=== PATIENT | female | born 1950 | race Caucasian/White ===

== ENCOUNTER 2020-12-19 22:18 | Inpatient (IN) | payer OTHER ==
--- OUTSIDE RECORDS SUMMARY | 2020-12-19 22:22 | XMS REPORT | Continuity of Care Document ---
:1950 Author Organization [facility] t Address [address] [place] [address] [address]. She[address] [place] [address] Care Team Providers Name Role Phone DONTE Attending Clinician Unavailable MICHELLE Attending Clinician Unavailable Problems This patient has no known problems. Allergies, Adverse Reactions, Alerts This patient has no known allergies or adverse reactions. Medications This patient has no known medications. Procedures This patient has no known procedures. Encounters Start End Encounter Admission Attending Care Care Encounter Source Date/Time Date/Time Type Type Clinicians Facility Department ID 2020-04-05 2020-04-05 Outpatient DONTE [facility] [id number] [place] 00:00:00 00:00:00 PAT [address] 2020-03-24 2020-03-24 Outpatient [facility] [id number] 00:00:00 00:00:[address] 2020-03-24 2020-03-24 Outpatient [facility] [id number] 00:00:00 00:00:[address] 2020-03-24 2020-03-24 Outpatient [facility] [id number] [place] 00:00:00 00:00:00 BHAVIK [address] 2020-03-24 2020-03-24 Outpatient [facility] [id number] [place] 00:00:00 00:00:00 BHAVIK [address] Results This patient has no known results.
[2020-12-20 00:16] LABS: Absolute Lymphocytes (CBC) 1.6 K/uL (0.7-4.9); Basophils % 1.1 % (0-1.3); Hematocrit 36.8 % (36.0-45.0); Lymphocytes % 27.6 % (15.3-44.8); MPV 10.1 fL (7.6-11.3); Protime INR 1.09; RBC Red Blood Cell Count 3.97 M/uL (3.86-4.86)
[2020-12-20 00:29] LABS: ALT/SGPT 24 U/L (12-78); AST/SGOT 15 U/L (15-37); Albumin 3.8 g/dL (3.4-5.0); Alkaline Phosphatase 89 U/L (45-117); BUN Blood Urea Nitrogen 21 mg/dL (7-18); Bicarbonate 28 mmol/L (21-32); Bilirubin Direct < 0.1 mg/dL (0-0.2); Bilirubin Total 0.2 mg/dL (0.2-1.0); Glucose Level 118 mg/dL (74-106); Magnesium 2.4 mg/dL (1.8-2.4); NT PRO-BNP 151 pg/mL (<125); Potassium 4.3 mmol/L (3.5-5.1); Protein, Total 7.4 g/dL (6.4-8.2); Sodium Level 143 mmol/L (136-145); Troponin (Emerg Dept Use Only) < 0.02 ng/mL (0.0-0.045)
[2020-12-20 01:01] LABS: Barbiturates NEGATIVE (NEGATIVE); Benzodiazepines NEGATIVE (NEGATIVE); Cocaine NEGATIVE (NEGATIVE); METHAMPHETAM NEGATIVE (NEGATIVE); Methadone NEGATIVE (NEGATIVE); Opiates NEGATIVE (NEGATIVE); Phencyclidine NEGATIVE (NEGATIVE); THC Cannibis NEGATIVE (NEGATIVE)
[2020-12-20 01:05] LABS: Urine Blood TRACE (NEG); Urine Glucose NEGATIVE (NEG); Urine Protein NEGATIVE (NEG)
--- NOTE | 2020-12-20 01:32 | EDPHYS ---
Physician Documentation [facility] Name: Isabel Robins Age: 70 yrs Sex: Female : 1950 Arrival Date: 12/19/2020 Time: 22:24 Bed 16 Private MD: ED Physician Otto Linares HPI: 12/19 23:33 This 70 yrs old Female presents to ER via EMS with complaints of Passed out. mh7 23:33 The patient has experienced syncope, became unresponsive, collapsed, lost mh7 consciousness. Onset: The symptoms/episode began/occurred just prior to arrival, today. 23:34 Duration: This was a single episode, that lasted an unknown period of time. Context: [facility] the episode(s) was witnessed, by family, , occurred at home, occurred while the patient was sitting, Just prior to the episode the patient experienced dizziness. Associated injury: The patient did not suffer any apparent associated injury. Associated signs and symptoms: Pertinent negatives: abdominal pain, agitation, ataxia, blurred vision, chest pain, combativeness, confusion, diaphoresis, diarrhea, headache, lightheadedness, nausea, numbness, palpitations, seizure, shortness of breath, tingling, vomiting, weakness. Current symptoms: Currently, the patient is not experiencing any symptoms, the patient feels back to baseline. Historical: - Allergies: 22:33 No Known Allergies; mg2 - Home Meds: 22:33 gabapentin oral oral [Active]; estradiol [Active]; tinzadiane [Active]; mg2 - PMHx: 22:33 chronic back pain; GERD; mg2 - PSHx: 22:33 back sx; mg2 - Immunization history:: Flu vaccine status is unknown. - Social history:: Smoking status: unknown. ROS: 23:34 Constitutional: Negative for fever, chills, and weight loss, Eyes: Negative for injury, mh7 pain, redness, and discharge, ENT: Negative for injury, pain, and discharge, Neck: Negative for injury, pain, and swelling, Cardiovascular: Negative for chest pain, palpitations, and edema, Respiratory: Negative for shortness of breath, cough, wheezing, and pleuritic chest pain, Abdomen/GI: Negative for abdominal pain, nausea, vomiting, diarrhea, and constipation, Back: Negative for injury and pain, : Negative for injury, bleeding, discharge, and swelling, MS/Extremity: Negative for injury and deformity, Skin: Negative for injury, rash, and discoloration, Psych: Negative for depression, anxiety, suicide ideation, homicidal ideation, and hallucinations, Allergy/Immunology: Negative for hives, rash, and allergies, Endocrine: Negative for neck swelling, polydipsia, polyuria, polyphagia, and marked weight changes, Hematologic/Lymphatic: Negative for swollen nodes, abnormal bleeding, and unusual bruising. Exam: 23:34 Constitutional: This is a well developed, well nourished patient who is awake, alert, mh7 and in no acute distress. Head/Face: Normocephalic, atraumatic. Eyes: Pupils equal round and reactive to light, extra-ocular motions intact. Lids and lashes normal. Conjunctiva and sclera are non-icteric and not injected. Cornea within normal limits. Periorbital areas with no swelling, redness, or edema. Neck: Trachea midline, no thyromegaly or masses palpated, and no cervical lymphadenopathy. Supple, full range of motion without nuchal rigidity, or vertebral point tenderness. No Meningismus. Chest/axilla: Normal chest wall appearance and motion. Nontender with no deformity. No lesions are appreciated. Cardiovascular: Regular rate and rhythm with a normal S1 and S2. No gallops, murmurs, or rubs. Normal PMI, no JVD. No pulse deficits. Respiratory: Lungs have equal breath sounds bilaterally, clear to auscultation and percussion. No rales, rhonchi or wheezes noted. No increased work of breathing, no retractions or nasal flaring. Abdomen/GI: Soft, non-tender, with normal bowel sounds. No distension or tympany. No guarding or rebound. No evidence of tenderness throughout. Back: No spinal tenderness. No costovertebral tenderness. Full range of motion. Skin: Warm, dry with normal turgor. Normal color with no rashes, no lesions, and no evidence of cellulitis. MS/ Extremity: Pulses equal, no cyanosis. Neurovascular intact. Full, normal range of motion. Neuro: Awake and alert, GCS 15, oriented to person, place, time, and situation. Cranial nerves II-XII grossly intact. Motor strength 5/5 in all extremities. Sensory grossly intact. Cerebellar exam normal. Normal gait. Psych: Awake, alert, with orientation to person, place and time. Behavior, mood, and affect are within normal limits. Vital Signs: 22:27 BP 191 / 94; Weight 65.32 kg; Height 5 ft. 4 in. (162.56 cm); mg2 22:38 BP 150 / 88; mg2 22:38 Temp 98.3(O); mg2 23:55 BP 129 / 74; Pulse 79; Resp 18; Pulse Ox 98% on R/A; mg2 12/20 04:14 BP 150 / 91; Pulse 76; Resp 18; Temp 98.1; Pulse Ox 96% on R/A; mg2 12/19 22:27 Body Mass Index 24.72 (65.32 kg, 162.56 cm) mg2 MDM: 01:30 Differential Diagnosis: cardiac arrhythmia, cerebrovascular accident, drug effect, [facility] idiopathic syncope, pseudo seizure, vasovagal episode. Data reviewed: vital signs, nurses notes, EMS record, lab test result(s), cardiac enzymes, CBC, drug level(s), electrolytes, urinalysis, urine drug screen, EKG, radiologic studies, CT scan, plain films. Data interpreted: Pulse oximetry: on room air is 98 %. Interpretation: normal. Counseling: I had a detailed discussion with the patient and/or guardian regarding: the historical points, exam findings, and any diagnostic results supporting the discharge/admit diagnosis, lab results, radiology results, the need for further work-up and treatment in the hospital. Response to treatment: the patient's symptoms have markedly improved after treatment. 01:32 Patient medically screened. [facility] 12/19 23:18 Order name: Basic Metabolic Panel [facility] 12/19 23:18 Order name: CBC with Diff [facility] 12/19 23:18 Order name: LFT's [facility] 12/19 23:18 Order name: Magnesium [facility] 12/19 23:18 Order name: NT PRO-BNP [facility] 12/19 23:18 Order name: PT-INR [facility] 12/19 23:18 Order name: Troponin (emerg Dept Use Only) [facility] 12/19 23:55 Order name: UDS [facility] 12/20 00:16 Order name: CBC with Automated Diff; Complete Time: 00:32 EDMS 12/20 00:17 Order name: Protime (+INR); Complete Time: 00:32 EDMS 12/20 00:29 Order name: Basic Metabolic Panel; Complete Time: 00:32 EDMS 12/20 00:29 Order name: Liver (Hepatic) Function; Complete Time: 00:32 EDMS 12/20 00:29 Order name: Troponin (Emerg Dept Use Only); Complete Time: 00:32 EDMS 12/20 00:29 Order name: NT PRO-BNP; Complete Time: 00:32 EDMS 12/19 23:18 Order name: XRAY Chest (1 view) [facility] 12/19 23:18 Order name: EKG; Complete Time: 00:39 7 12/19 23:19 Order name: CT Head Brain wo Cont [facility] 12/20 00:29 Order name: Magnesium; Complete Time: 00:32 EDMS 12/20 00:52 Order name: Urine Dipstick--Ancillary (enter results) 3 12/20 01:01 Order name: Urine Drug Screen; Complete Time: 01:01 [facility] 12/20 01:05 Order name: Urine Dipstick-Ancillary [facility] 12/20 01:15 Order name: Head Brain Wo Cont EDID 12/20 01:21 Order name: Chest Single View [facility] 12/20 01:29 Order name: COVID-19 : Document "Date of Symptom Onset" if Symptomatic. mg2 12/20 01:29 Order name: CORONAVIRUS [facility] 12/20 01:40 Order name: Troponin I [facility] 12/20 01:40 Order name: Troponin I [facility] 12/20 01:40 Order name: Troponin I [facility] 12/20 01:40 Order name: Heart Healthy [facility] 12/20 03:31 Order name: SARS-COV-2 RT PCR [facility] 12/19 23:18 Order name: Cardiac monitoring; Complete Time: 23:55 7 12/19 23:18 Order name: EKG - Nurse/Tech; Complete Time: 23:55 7 12/19 23:18 Order name: IV Saline Lock; Complete Time: 23:55 7 12/19 23:18 Order name: Labs collected and sent; Complete Time: 23:55 7 12/19 23:18 Order name: O2 Per Protocol; Complete Time: 23:55 7 12/19 23:18 Order name: O2 Sat Monitoring; Complete Time: 23:55 7 12/19 23:18 Order name: Urine Dipstick-Ancillary (obtain specimen); Complete Time: 00:33 [facility] Administered Medications: No medications were administered Disposition: 12/20/20 01:32 Hospitalization ordered by Harlan Barrow for Observation. Preliminary diagnosis is Syncope and collapse. - Bed requested for Telemetry/MedSurg (observation). - Status is Observation. mg2 - Condition is Stable. - Problem is new. - Symptoms have improved. Signatures: Dispatcher [employer] EDID Felisha Morris RN RN cg Jay Judge RN RN mg2 Otto Linares MD MD [facility] Corrections: (The following items were deleted from the chart) 03:46 01:32 Hospitalization Ordered by Harlan Barrow MD for Observation. Preliminary diagnosis cg is Syncope and collapse. Bed requested for Telemetry/MedSurg (observation). Status is Observation. Condition is Stable. Problem is new. Symptoms have improved. [facility] 04:20 03:46 12/20/2020 01:32 Hospitalization Ordered by Harlan Barrow MD for Observation. mg2 Preliminary diagnosis is Syncope and collapse. Bed requested for Telemetry/MedSurg (observation). Status is Observation. Condition is Stable. Problem is new. Symptoms have improved. cg
--- NOTE | 2020-12-20 01:32 | ER ---
Nurse's Notes [facility] Name: Isabel Robins Age: 70 yrs Sex: Female : 1950 Arrival Date: 12/19/2020 Time: 22:24 Bed 16 Private MD: Diagnosis: Syncope and collapse Presentation: 12/19 22:27 Chief complaint: EMS states: she was watching movie tonight with the when she mg2 suddenly loss consciousness but was breathing , did a sternal massage on her and she woke up after 15 mins. BGL was 199 mg/dl. she said she has difficulty scribing some sentences around 0230 pm today but she is alright now. BP was \T\ the high 190 systolic. denies chest pain. I also have a lot of back issues and vertigo has been bothering me nowadays. Coronavirus screen: Client denies travel out of the [place] in the last 14 days. At this time, the client does not indicate any symptoms associated with coronavirus-19. Ebola Screen: No symptoms or risks identified at this time. Initial Sepsis Screen: Does the patient meet any 2 criteria? No. Patient's initial sepsis screen is negative. Does the patient have a suspected source of infection? No. Patient's initial sepsis screen is negative. Risk Assessment: Do you want to hurt yourself or someone else? Patient reports no desire to harm self or others. Onset of symptoms was December 19, 2020. 22:27 Method Of Arrival: EMS: [place] [id number] 22:27 Acuity: JONAS 3 mg2 Triage Assessment: 12/20 00:16 General: Behavior is calm, cooperative. mg2 Historical: - Allergies: 12/19 22:33 No Known Allergies; mg2 - Home Meds: 22:33 gabapentin oral oral [Active]; estradiol [Active]; tinzadiane [Active]; mg2 - PMHx: 22:33 chronic back pain; GERD; mg2 - PSHx: 22:33 back sx; mg2 - Immunization history:: Flu vaccine status is unknown. - Social history:: Smoking status: unknown. Screenin/08 00:16 Abuse screen: Denies threats or abuse. Denies injuries from another. Nutritional mg2 screening: No deficits noted. Tuberculosis screening: No symptoms or risk factors identified. Fall Risk IV access (20 points). Assessment: 12/19 22:40 General: Appears in no apparent distress. comfortable. mg2 12/20 00:15 Pain: Denies pain. Neuro: Level of Consciousness is awake, alert, obeys commands, mg2 Oriented to person, place, time, situation. Cardiovascular: Capillary refill < 3 seconds Patient's skin is warm and dry. Respiratory: Airway is patent Respiratory effort is even, unlabored, Respiratory pattern is regular, symmetrical. GI: No signs and/or symptoms were reported involving the gastrointestinal system. : No signs and/or symptoms were reported regarding the genitourinary system. EENT: No signs and/or symptoms were reported regarding the EENT system. Derm: Skin is intact, is healthy with good turgor, Skin is pink, warm \T\ dry. normal. Musculoskeletal: Circulation, motion, and sensation intact. Capillary refill < 3 seconds. 02:28 Reassessment: Patient appears in no apparent distress at this time. Patient and/or mg2 family updated on plan of care and expected duration. Pain level reassessed. Vital Signs: 12/19 22:27 BP 191 / 94; Weight 65.32 kg; Height 5 ft. 4 in. (162.56 cm); mg2 22:38 BP 150 / 88; mg2 22:38 Temp 98.3(O); mg2 23:55 BP 129 / 74; Pulse 79; Resp 18; Pulse Ox 98% on R/A; mg2 12/20 04:14 BP 150 / 91; Pulse 76; Resp 18; Temp 98.1; Pulse Ox 96% on R/A; mg2 12/19 22:27 Body Mass Index 24.72 (65.32 kg, 162.56 cm) mg2 ED Course: 12/19 22:24 Patient arrived in ED. mg2 22:32 Triage completed. mg2 22:32 Arm band placed on. mg2 22:37 Jay Judge RN is Primary Nurse. mg2 22:40 Otto Linares MD is Attending Physician. mh7 23:45 Inserted saline lock: 20 gauge in left antecubital area, using aseptic technique. Blood mg2 collected. 12/20 00:16 Patient has correct armband on for positive identification. mg2 00:16 No provider procedures requiring assistance completed. mg2 01:15 Head Brain Wo Cont In Process Unspecified. EDMS 01:23 Chest Single View In Process Unspecified. EDMS 01:31 Harlan Barrow MD is Hospitalizing Provider. mh7 04:18 Patient admitted, IV remains in place. mg2 Administered Medications: No medications were administered Outcome: :32 Decision to Hospitalize by Provider. mh7 04:19 Admitted to Med/surg accompanied by nurse, via stretcher, room 218, with chart, Report mg2 called to KATE Dan 04:19 Condition: stable 04:19 Instructed on the need for admit, Demonstrated understanding of instructions. 04:20 Patient left the ED. mg2 Signatures: Dispatcher [employer] EDMS Jay Judge RN RN mg2 Otto Linares MD MD 7 Corrections: (The following items were deleted from the chart) 12/19 22:32 22:27 Chief complaint: EMS states: she was watching movie tonight with the when mg2 she suddenly loss consciousness but was breathing , did a sternal massage on her and she woke up after 15 mins. BGL was 199 mg/dl. she said she has difficulty scribing some sentences around 0230 pm today but she is alright now. BP was \T\ the high 190 systolic. denies chest pain. mg2
[2020-12-20] MEDS ORDERED: ONDANSETRON 4 MG/2 ML VIAL IV PRN (01:35)
[2020-12-20] MEDS ORDERED: NA CHLORIDE 0.9% 1,000 ML IV SCH (02:00)
[2020-12-20] MEDS: cloNIDine HCL 0.1 MG TAB PO PRN (07:05)
[2020-12-20] MEDS: NA CHLORIDE 0.9% 1,000 ML IV SCH ×2 (08:11→22:47)
[2020-12-20 08:15] VITALS: BMI 24.9
--- NOTE | 2020-12-20 08:20 | RAD REPORT ---
EXAM DESCRIPTION: RAD - Chest Single View - 12/20/2020 12:43 am CLINICAL HISTORY: LOSS OF CONSCIOUSNESS COMPARISON: Two view chest January 2017 TECHNIQUE: AP portable chest image was obtained 12/20/2020 12:43 am . FINDINGS: No focal mass or consolidation. Rounded mass density midline low chest is believed to be h iatal hernia that has developed since prior imaging. Chronic interstitial opacification is present si milar to comparison. Heart and vasculature are normal. No measurable pleural effusion and no pneumoth orax. No acute bony abnormality seen. No acute aortic findings suspected. IMPRESSION: Chronic interstitial lung disease with no acute cardiopulmonary finding. Rounded mass density in the midline inferior chest is believed to be hiatal hernia that has developed since prior imaging.
[2020-12-20] MEDS ORDERED: PNEUMOCOCCAL VACCINE 0.5 ML IMVAC ONE (10:00)
--- NOTE | 2020-12-20 12:00 | RAD REPORT ---
EXAM DESCRIPTION: CT - Head Brain Wo Cont - 12/20/2020 5:03 am CLINICAL HISTORY: Syncope COMPARISON: None available TECHNIQUE: Axial CT of the head obtained from the skull apex to the skull base without contrast. Thi s exam was performed according to our departmental dose-optimization program, which includes automate d exposure control, adjustment of the mA and/or kV according to patient size and/or use of iterative reconstruction technique. FINDINGS: No acute intracranial hemorrhage identified. No mass, mass effect, shift of the midline, a bnormal extra-axial fluid collection or CT evidence of acute ischemic change identified. The ventricu lar system and sulcal spaces are mildly enlarged compatible with mild cerebral atrophy. Scattered a reas of hypodensity throughout the supratentorial white matter are nonspecific and may be related to chronic small vessel ischemic change. The visualized paranasal sinuses and mastoid air cells are well aerated. No skull fracture identifi ed. Visualized orbits and globes are unremarkable. Atherosclerotic calcification of the intracranial internal carotid arteries. IMPRESSION: 1. No acute intracranial abnormality by CT criteria. Electronically signed by: Uziel Lovett 12/20/2020 12:29 AM APPLICATION PROCESSOR Due to temporary technical issues with the PACS/Fluency reporting system, reports are being signed by the in house radiologists without review as a courtesy to insure prompt reporting. The interpreting radiologist is fully responsible for the content of the report.
--- NOTE | 2020-12-20 17:57 | RAD REPORT ---
EXAM DESCRIPTION: MRI - Brain W/Wo Cont - 12/20/2020 3:35 pm CLINICAL HISTORY: AMS,SYNCOPE COMPARISON: MRA Head Wo Cont dated 12/20/2020; MRA Neck W/Wo Cont dated 12/20/2020; Head Brain Wo Cont d ated 12/20/2020 TECHNIQUE: Sagittal and axial T1-weighted images were obtained. Axial PD/heavily T2-weighted and T2- FLAIR images were obtained along with axial DWI/ADC mapping sequences. Coronal heavily T2 weighted s equence obtained. Axial and coronal post-contrast T1-weighted images were also obtained. A 14 ml Mul tihance contrast following utilized. FINDINGS: No intracranial hemorrhage is present. No focal mass lesion identifiable. Diffusion imagin g sequence shows bilateral paramedian thalamic nonhemorrhagic infarctions. There is diminished signal on ADC mapping sequence. Lesion is approximately 11 x 6 mm on the left and 13 x 8 mm on the right. I nfarctions are in the medial inferior aspect of the each thalamus extending to the uppermost midbrain . No other areas of acute nonhemorrhagic infarction seen. Patient has atrophy changes are mild. Ventr icles are in proportion to any volume loss. There are mild chronic ischemic changes in the cerebral w lamar matter. The bilateral thalamus infarction pattern is unusual. Thalamoperforator branches from the posterior c ommunicating and posterior cerebral artery supply the thalamus. There is an anatomic variant whereby the bilateral thalamus paramedian regions are supplied by a single vessel (artery of Persheron) off o f one of the posterior cerebral artery P1 segments. Infarction of this vessel would generate the bila teral paramedian thalamus infarction pattern. There is no edema or shift of midline structures. No extra-axial fluid collections. Tillman-matter/white matter junction is preserved. Signal voids are seen as a normal finding in the major intracranial v essels. Post-contrast images show normal enhancement. No dural thickening. Mastoid air cells and paranasal sinuses are clear. 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 Infarctions are in the i nferior thalami extending to the superior midbrain. Mild atrophy and mild chronic ischemic changes are noted in the cerebral white matter. No other areas of acute infarction. No hemorrhage, mass or other acute finding.
[2020-12-20] MEDS ORDERED: METOPROLOL TARTRATE 5 MG/5 ML INJ IV SCH (18:00)
[2020-12-20] MEDS: ENOXAPARIN 40 MG/0.4 ML SQ SCH (18:06)
[2020-12-20] MEDS: ASPIRIN EC 81 MG TAB PO SCH (18:07)
--- NOTE | 2020-12-20 18:09 | RAD REPORT ---
EXAM DESCRIPTION: MRI - MRA Head Wo Cont - 12/20/2020 3:15 pm CLINICAL HISTORY: CVA, decreased level of consciousness COMPARISON: MRI brain same date, CT head same date TECHNIQUE: Axial and coronal 3D [id number] image acquisition was performed. 3D rotational images were generated with source and reconstruction images reviewed. Horizontal and vertical axis rotation al views generated using MIP protocol. FINDINGS: No aneurysm or vascular malformation identifiable. Major venous sinuses appear patent. Ameya ous sinus thrombosis is not suspected from these images. Distal most vertebral arteries and basilar artery show no suspicious findings. Proximal portions of e ach posterior cerebral artery also without significant disease. The internal carotid arteries from sk ullbase determination show no dissection or significant disease. Bilateral anterior and middle cerebr al artery proximal vessels show no significant disease. Patient does have relatively mild atherosclerotic changes in the peripheral branches. No vasculitis o r diffuse vascular process identifiable. IMPRESSION: MRI imaging shows relatively mild atherosclerotic changes in the far peripheral branches of the anterior, middle and posterior cerebral arteries. Central vasculature shows no significant disease. Major venous sinuses appear patent. Occlusion of an anatomic variant is suspected to be the cause of the bilateral paramedian thalamic in farctions. Infarction in this region can result in diminished level of consciousness.
--- NOTE | 2020-12-20 18:15 | RAD REPORT ---
EXAM DESCRIPTION: MRI - MRA Neck W/Wo Cont - 12/20/2020 3:46 pm CLINICAL HISTORY: CVA, diminished level of consciousness. COMPARISON: MRA neck same date, MRI brain same date TECHNIQUE: MR angiography of the cervical vasculature performed. Coronal imaging plane acquisition u tilized. A 14 MultiHance contrast volume was utilized. Coronal reformatted images were generated and reviewed. Vertical axis 3D rotational projections obtained using maximum intensity projection protoco l. FINDINGS: MRA neck imaging has motion degradation limitation. Aortic arch is 3 vessel configuration. Innominate and left common carotid artery show no origins sten osis. There is questionable stenosis in the left subclavian artery between the arch and left vertebra l artery origin. This is estimated at 50%. Proximal portions of each common carotid artery noted to be tortuous. Vertebral artery origins are no t well visualized. The distal right vertebral artery and the distal right internal carotid artery near the skullbase christian w loss of signal. Dissection or high-grade stenosis is not suspected. This is believed to be artifact . MRA Head imaging overlaps the same region of vessels without evidence for stenosis or occlusion. No significant carotid bulb disease. IMPRESSION: Approximately 50% stenosis of the left subclavian artery between the aortic arch and norma tebral artery origin. No significant or true stenosis of the cervical carotid or vertebral vasculature. As detailed above, nonvisualization of the distal right internal carotid artery and vertebral artery believed to be óscar fact. These regions show no significant disease on the overlapping MRA Head imaging.
--- NOTE | 2020-12-20 18:28 | RAD REPORT ---
EXAM DESCRIPTION: RAD - Abdomen Single View - 12/20/2020 6:22 pm CLINICAL HISTORY: confirm Dobhoff placement Pain COMPARISON: ABDOMINAL EXAM COMPLETE dated 06/22/2014 FINDINGS: The top off tube is folded on itself in the distal esophagus. Recommend removal and reposi tioning
--- NOTE | 2020-12-20 20:41 | P.HP ---
Certification for Inpatient Patient admitted to: Inpatient With expected LOS: >2 Midnights Practitioner: I am a practitioner with admitting privileges, knowledge of patient current condition, hospital course, and medical plan of care. Services: Services provided to patient in accordance with Admission requirements found in Title 42 Section 412.3 of the Code of Federal Regulations Patient History Date of Service: 12/20/20 Reason for admission: SYNCOPE History of Present Illness: MRS. ESCOBEDO HAS HISTORY OF SCOLIOSIS WITH MULTIPLE SURGERIES COMES WITH SUDDEN SOMNOLENCE. HER CT SCAN WAS NEGATIVE BUT MRI DONE TODAY SHOW BILATERAL THALAMIC INFARCTIONS. SHE NEVER HAD HTN, SHE IS NOT A SMOKER OR A DIABETIC. Allergies No Known Allergies Allergy (Unverified 07/10/16 01:22) Home medications list reviewed: Yes Home Medications: Ascorbate Calcium [Vitamin C] 500 mg PO 12/20/20 Multivitamin 1 each PO 12/20/20 Mv-Mn/Iron/Folic Acid/Herb 190 [Vitamin D3 Complete Caplet] 1 each PO 12/20/20 - Past Medical/Surgical History Diabetic: No -: GERD -: Vertigo -: Chronic back pain - Social History Smoking Status: Never smoker Alcohol use: Yes CD- Drugs: No Caffeine use: Yes Place of Residence: Home Review of Systems is unable to be obtained Physical Examination - Vital Signs Temperature: 98.3 F Blood Pressure: 168/91 Pulse: 69 Respirations: 16 Pulse Ox (%): 98 - Physical Exam General: Unresponsive (MOVES WITH PAINFUL STIMULUS.) HEENT: Other (PUPILS ARE SMALL AND REACITVE.) Neck: Supple, 2+ carotid pulse no bruit, No LAD, Without JVD or thyroid abnormality Respiratory: Clear to auscultation bilaterally, Normal air movement Cardiovascular: Regular rate/rhythm, Normal S1 S2 Gastrointestinal: Normal bowel sounds, No tenderness Musculoskeletal: No tenderness Integumentary: No rashes Neurological: Other (UNRESPONSIVE. MOVES LEGS WITH PAINFUL STIMULUS.) Lymphatics: No axilla or inguinal lymphadenopathy - Studies Laboratory Data (last 24 hrs) 12/20/20 06:20: Troponin I < 0.02 12/20/20 02:15: Troponin I < 0.02 12/19/20 23:45: PT 12.5, INR 1.09 12/19/20 23:45: WBC 5.80, Hgb 12.2, Hct 36.8, Plt Count 215 12/19/20 23:45: Sodium 143, Potassium 4.3, BUN 21 H, Creatinine 1.00, Glucose 118 H, Magnesium 2.4, Total Bilirubin 0.2, AST 15, ALT 24, Alkaline Phosphatase 89 12/19/20 23:18: PT Cancelled, INR Cancelled 12/19/20 23:18: WBC Cancelled, Hgb Cancelled, Hct Cancelled, Plt Count Cancelled 12/19/20 23:18: Sodium Cancelled, Potassium Cancelled, BUN Cancelled, Creatinine Cancelled, Glucose Cancelled, Magnesium Cancelled, Total Bilirubin Cancelled, AST Cancelled, ALT Cancelled, Alkaline Phosphatase Cancelled Assessment and Plan - Problems (Diagnosis) (1) Thalamic infarct, acute Current Visit: Yes Status: Acute Plan: BILATERAL THALAMIC INFARCTION. POSSIBLE FROM ABNORMAL VARIANT OF BLOOD VESSEL SUPPLYING THIS AREA. DR DANIEL DETAILED HOW INSTEAD OF TWO BLOOD VESSELS SHE HAS ONE AND THAT ONE OCCLUDED GIVING RISE TO STROKE. START DOBHOFF FEEDING. START ASPIRIN 81 MG DAILY FROM DOBHOFF SHE IS NOT ABLE TO SWALLOW BEING UNRESPONSIVE. (2) BP (high blood pressure) Current Visit: Yes Status: Acute Plan: THIS IS A REACTION TO HAVING STROKE. SHE NEVER HAD HTN BEFORE. - Advance Directives Does patient have a Living Will: No Does patient have a Durable POA for Healthcare: No
[2020-12-20] MEDS ORDERED: METOPROLOL TARTRATE 5 MG/5 ML INJ IV PRN (20:43)
[2020-12-20] MEDS ORDERED: JEVITY 1.2 CAL LIQUID 1,000 ML BOT FT SCH (21:00)
[2020-12-20] MEDS: ATORVASTATIN 10 MG TAB PO SCH (21:00)
[2020-12-20] MEDS: carvediloL 6.25 MG TAB PO SCH (21:00)
--- NOTE | 2020-12-20 21:11 | RAD REPORT ---
EXAM DESCRIPTION: RAD - Abdomen Single View - 12/20/2020 8:55 pm CLINICAL HISTORY: confirmation of dobhoff placement Pain COMPARISON: Abdomen Single View dated 12/20/2020 FINDINGS: The enteric tube is coiled within a hiatal hernia and the distal aspect is folded upon its elf likely within the stomach which traverses the hernia defect.
--- NOTE | 2020-12-20 21:32 | CON ---
Reason For Consultation: Consultation called because of sudden unresponsiveness and falling asleep. History Of Present Illness: Ms. Robins is a 70-year-old right-handed patient with no sign ificant past medical history except chronic back pain and gastroesophageal reflux disease, who was at home with her when she suddenly passed out, became unresponsive, and collapsed. He said she appeared to be in a deep sleep and would not arouse. She was brought by emergency services to [facility] and arrived at 2224 hours on the 19 of December. She had a head CT scan done without co ntrast at 5:03 a.m. on the that is the following day, scan showed no acute ischemic or hemorrhagi c change. Blood work showed a normal complete blood count with differential, normal coagulation pane l. Chemistries show mild dehydration with chloride 108, BUN 21, otherwise creatinine was 1. Liver f unction studies unremarkable. Troponins unremarkable. Urine showed trace esterase and trace blood. Toxicology screen was negative. COVID-19 test was negative. The patient's said that she si nce occurrence has been in the sleep state with deep breathing and he said earlier today she did appa rently wake up enough to stand and with assistance because of poor balance, walked to the bathroom an d then went back to bed and appeared to be sleeping and deep breathing. At the time of my evaluation , she was having an EEG done. EEG pattern is just consistent with sleep. There were spindle activit y noted. Her subsequent brain MRI done today identified bilateral acute thalamic strokes, which is s uspected potentially came off an anatomical variant whereby both thalami are supplied by a single ves zachery off 1 of the posterior cerebral artery P1 segments. This is referred to us artery of [place]. Another possibility is cardioembolic strokes given the nature of these, although unlikely those typi doris end up in the cortex and not in the subcortical region. The MRI also identified mild atrophy a nd chronic ischemic change. The neck MRA showed no significant abnormalities in the vessels into the head. There was a 50% stenosis of left subclavian between the aortic arch and the vertebral artery. It should be noted that along with the thalami, the upper brainstem were also involved in strokes. The MRA of the [place] of March showed mild arthrosclerotic changes in the far peripheral branches o f the anterior middle and posterior cerebral artery, and they again reference an anatomical variant, it is suspected to be the cause of the bilateral paramedian thalamic infarcts, which again can result in diminished level of consciousness. Past Medical History: As indicated. Allergies: NO KNOWN DRUG ALLERGIES. Medications: At home, gabapentin, estradiol, tizanidine. Past Surgical History: Back surgery. Social History: No alcohol, tobacco, or IV drug use. The patient lives with . Physical Examination: Vital Signs: Blood pressure 168/91, pulse 69, respirations 16, temperature 98.3, oxygen saturation 9 8%. Weight 145 pounds, height 5 feet 4 inches, BMI 24.9. General: Ms. Robins is lying in bed and appearing to be in sleep. She is arousable by stimulating the feet. She does focally withdraw each foot and similarly so the hands to focally move and withdra w to stimulation. HEENT: Her pupils when eyes are open are about 2 mm and round and very poorly reactive bilaterally, is very sluggish. Consensual response noted. Face appears symmetric. Lungs: Air movement bilaterally. Heart: Regular. Abdomen: Soft. Extremities: No edema or cyanosis. Neurological: No focal cranial nerve deficits except pupils are around 2 mm when eyes were close. F marlee again is symmetric. Motor examination difficult to assess, but there is increased tone in the up per and lower extremities with dry symmetric sensation difficult to assess, but the patient does with draw to stimulation in the feet, less so to stimulation in the upper extremity, that is the hand. Sh e did not move when the nail pressure was applied bilaterally on the hands, although very little move ment there. With lifting the arm up, she did resist movement of both sides. Unable to assess coordi nation and gait. Reflexes are symmetric and slightly increased. Assessment: Ms. Robins is a 70-year-old patient, who has a possible stroke affecting the paramedian thalami and upper brainstem. This is possibly due to an anatomical variant where 1 vessel off 1 of the posterior cerebral artery P1 segment serve both thalamic region and the upper brain stem, that ma y produce such a syndrome as the patient is having. Plan: 1.Aspirin 81 mg daily. 2.The patient will be served by placing an NG tube, may then have a swallow evaluation if awake enou gh. May give central nervous system stimulant to attempt to keep the patient awake during waking ludmila r times. 3.Begin physical therapy as best as possible. 4.Maintain some permissive hypertension during this acute stroke phase. 5.We will evaluate for the possibility of beginning rehabilitation and this was discussed with Dr. iSgifredo thomas and the patient's daughter and . LUDY/JESSICA Voice ID: [id number] Report ID: [id number]
[2020-12-21] MEDS: ASPIRIN EC 81 MG TAB PO SCH (09:00)
[2020-12-21] MEDS ORDERED: ASPIRIN 600 MG/SUPP PR SCH (09:00)
[2020-12-21] MEDS: ENOXAPARIN 40 MG/0.4 ML SQ SCH ×2 (09:00→13:15)
[2020-12-21] MEDS: carvediloL 6.25 MG TAB PO SCH ×3 (09:00→21:00)
--- NOTE | 2020-12-21 18:09 | PN ---
Subjective: Ms. Robins was unconscious this morning, basically unresponsive actually with a painful stimulus but I heard while we were trying to prepare for Dobhoff placement by an EGD as it was not possible by nursing with multiple trials. During this time, she woke up after I visited this morning and she is going to speech evaluation and speech therapy to find out ability to swallow. We will be referring her for occupational and physical therapy, possible inpatient rehab also. Assessment/plan: 1. 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 Continue aspirin once a day. We had to give suppository and now she is back on oral food and medications. 2. Hypertension, which was never problem but after stroke some patients become hypertensive. She is one of them. We will be following this on a routine basis and this should improve with just a gentle dose at this point. CRISPIN/JESSICA Voice ID: [id number] Report ID: [id number] GILBERTO
[2020-12-21] MEDS: NA CHLORIDE 0.9% 1,000 ML IV SCH (18:59)
[2020-12-21] MEDS ORDERED: ACETAMINOPHEN 500 MG TAB PO SCH (21:00)
[2020-12-21] MEDS: ATORVASTATIN 10 MG TAB PO SCH (21:00)
--- NOTE | 2020-12-22 08:49 | ECHO ---
HEIGHT: 5 ft 4 in WEIGHT: 145 lb 0 oz DATE OF STUDY: 12/21/[address]: Harlan Barrow MD 2-DIMENSIONAL: YES M.MODE: YES DOPPLER: YES COLOR FLOW: YES TDS: NO PORTABLE: NO DEFINITY: NO BUBBLE STUDY: NO DIAGNOSIS: SYNCOPE CARDIAC HISTORY: CATHERIZATION: NO SURGERY: NO PROSTHETIC VALVE: NO PACEMAKER: NO MEASUREMENTS (cm) DIASTOLIC (NORMALS) SYSTOLIC (NORMALS) IVSd 1.2 (0.6-1.2) LA Diam 2.6 (1.9-4.0) LVEF 54% LVIDd 2.8 (3.5-5.7) LVIDs 2.1 (2.0-3.5) %FS 27% LVPWd 1.2 (0.6-1.2) Ao Diam 2.3 (2.0-3.7) 2 DIMENSIONAL ASSESSMENT: RIGHT ATRIUM: NORMAL LEFT ATRIUM: NORMAL RIGHT VENTRICLE: NORMAL LEFT VENTRICLE: NORMAL TRICUSPID VALVE: NORMAL MITRAL VALVE: NORMAL PULMONIC VALVE: NORMAL AORTIC VALVE: NORMAL PERICARDIAL EFFUSION: NONE AORTIC ROOT: NORMAL LEFT VENTRICULAR WALL MOTION: NORMAL DOPPLER/COLOR FLOW: MILD TRICUSPID REGURGITATION. COMMENTS: MILD TRICUSPID REGURGITATION. NORMAL LEFT VENTRICULAR SIZE AND FUNCTION. NO WALL MOTION ABNORMALITY. NO EFFUSION. TECHNOLOGIST: Jorge LOPEZ
[2020-12-22] MEDS: ASPIRIN 600 MG/SUPP PR SCH (09:00)
[2020-12-22] MEDS ORDERED: carvediloL 6.25 MG TAB PO SCH (09:00)
--- NOTE | 2020-12-22 10:15 | EEG ---
CHART: [id number] TEST ID#: [id number] DATE OF STUDY: 12/20/2020 THE EEG WAS RECORDED PORTABLE IN THE PATIENT'S ROOM ON A 17 CHANNEL MACHINE. ELECTRODES WERE APPLIED IN THE USUAL MANNER USING THE INTERNATIONAL 10-20 SYSTEM. THE WAKING BACKGROUND RHYTHM IN THIS RECORD CONSISTS OF POORLY DEVELOPED AND POORLY ORGANIZED WAVES OF 9 HZ., MAXIMAL IN THE POSTERIOR HEAD REGIONS WHICH ATTENUATE NORMALLY WITH EYE OPENING. LOW-VOLTAGE 15-18 HZ ACTIVITY IS EXPRESSED IN THE FRONTAL REGIONS. THERE ARE NO FOCAL OR LATERALIZING FEATURES. NO EPILEPTIFORM ACTIVITY APPEARS. SLEEP OCCURRED NATURALLY. IN ADDITION NORMAL SLEEP PATTERNS ARE PRESENT. HYPERVENTILATION WAS NOT PERFORMED. PHOTIC STIMULATION PRODUCED FAIR DRIVING BILATERALLY. IMPRESSION: THIS IS A MILDLY ABNORMAL EEG DUE TO A MILDLY SLOW BACKGROUND. THIS IS A NON-SPECIFIC FUNCTION INDICATING THE PRESENCE OF A MILD DIFFUSE DISTURBANCE IN CEREBRAL FUNCTION.
[2020-12-22] MEDS: GABAPENTIN 100 MG CAP PO SCH (11:11)
[2020-12-22] MEDS: ENOXAPARIN 40 MG/0.4 ML SQ SCH (11:11)
[2020-12-22] MEDS: ASPIRIN EC 81 MG TAB PO SCH (11:12)
[2020-12-22] MEDS: carvediloL 6.25 MG TAB PO SCH ×2 (11:12→21:06)
[2020-12-22] MEDS: ATORVASTATIN 10 MG TAB PO SCH (21:06)
--- NOTE | 2020-12-22 21:45 | P.PN ---
Subjective Date of Service: 12/22/20 Chief Complaint: THALAMIC INFARCTS Subjective: No C/O voiced SHE WOKE UP YESTERDAY FROM 11 AM TO 4 PM AND SINCE THEN SHE IS SLEEPING AGAIN. POSTPONED AGGIE TUBE SHE WOKE UP AND HAD SPEECH THERAPY EVAL. Review of Systems is unable to be obtained Physical Examination - Vital Signs Temperature: 98.0 F Blood Pressure: 159/70 Pulse: 104 Respirations: 16 Pulse Ox (%): 97 - Physical Exam General: Mild distress HEENT: Atraumatic, PERRLA, EOMI Neck: Supple, JVD not distended Respiratory: Clear to auscultation bilaterally, Normal air movement Cardiovascular: Regular rate/rhythm, Normal S1 S2 Gastrointestinal: Normal bowel sounds, No tenderness Musculoskeletal: No tenderness Integumentary: No rashes Neurological: Other (PUPILS RE REACTING BUT SHE IS UNRESPONSIVE AND DOES NOT MOVE MUCH WITH PAINFUL STIMULUS.) Lymphatics: No axilla or inguinal lymphadenopathy - Studies Medications List Reviewed: Yes Assessment And Plan - Current Problems (Diagnosis) (1) Thalamic infarct, acute Current Visit: Yes Status: Acute Plan: BILATERAL THALAMIC INFARCTION. POSSIBLE FROM ABNORMAL VARIANT OF BLOOD VESSEL SUPPLYING THIS AREA. DR DANIEL DETAILED HOW INSTEAD OF TWO BLOOD VESSELS SHE HAS ONE AND THAT ONE OCCLUDED GIVING RISE TO STROKE. START DOBHOFF FEEDING. START ASPIRIN 81 MG DAILY FROM DOBHOFF SHE IS NOT ABLE TO SWALLOW BEING UNRESPONSIVE. SLEEP WAKE CYCLE , KIRSTIE ARE NOT FUNCTIONIGN WELL. HE MAY LET US DO DOBHOFF TUBE IF SHE DOES NOT WAKE UP. (2) BP (high blood pressure) Current Visit: Yes Status: Acute Plan: THIS IS A REACTION TO HAVING STROKE. SHE NEVER HAD HTN BEFORE.
[2020-12-23] MEDS: NA CHLORIDE 0.9% 1,000 ML IV SCH ×2 (02:45→20:10)
[2020-12-23] MEDS ORDERED: NA CHLORIDE 0.9% 1,000 ML IV SCH (06:32)
[2020-12-23] MEDS: ASPIRIN EC 81 MG TAB PO SCH (08:27)
[2020-12-23] MEDS: ENOXAPARIN 40 MG/0.4 ML SQ SCH (08:27)
[2020-12-23] MEDS: cloNIDine HCL 0.1 MG TAB PO PRN (08:28)
[2020-12-23] MEDS: carvediloL 6.25 MG TAB PO SCH ×2 (08:28→21:00)
[2020-12-23] MEDS: GABAPENTIN 100 MG CAP PO SCH (08:29)
[2020-12-23] MEDS: ASPIRIN 600 MG/SUPP PR SCH (08:30)
[2020-12-23] MEDS ORDERED: CLONIDINE 0.2 MG/PATCH TD SCH (09:00)
[2020-12-23 09:22] LABS: Absolute Lymphocytes (CBC) 0.6 K/uL (0.7-4.9); Basophils % 0.3 % (0-1.3); Hematocrit 37.3 % (36.0-45.0); Lymphocytes % 6.7 % (15.3-44.8); MPV 9.4 fL (7.6-11.3); RBC Red Blood Cell Count 4.05 M/uL (3.86-4.86)
[2020-12-23 10:40] LABS: Potassium 4.2 mmol/L (3.5-5.1)
--- NOTE | 2020-12-23 12:57 | P.PN ---
Subjective Date of Service: 12/23/20 Chief Complaint: THALAMIC INFARCTS Subjective: Improving SHE WOKE UP YESTERDAY FROM 11 AM TO 4 PM AND SINCE THEN SHE IS SLEEPING AGAIN. POSTPONED AGGIE TUBE SHE WOKE UP AND HAD SPEECH THERAPY EVAL. SHE IS AWAKE TODAY. SHE DOES NOT KNOW ABOUT YEAR UNTIL PROMPTED. SHE IS ABLE TO EAT. Review of Systems 10-point ROS is otherwise unremarkable General: Weakness Physical Examination - Vital Signs Temperature: 97.9 F Blood Pressure: 146/67 Pulse: 108 Respirations: 20 Pulse Ox (%): 98 - Physical Exam General: Oriented x2, Mild distress HEENT: Atraumatic, PERRLA, EOMI Neck: Supple, JVD not distended Respiratory: Clear to auscultation bilaterally, Normal air movement Cardiovascular: Regular rate/rhythm, Normal S1 S2 Gastrointestinal: Normal bowel sounds, No tenderness Musculoskeletal: No tenderness Integumentary: No rashes Neurological: Normal speech, Sensation intact, Cranial nerves 3-12 intact, Abnormal strength (MILD GENERAL WEAKNESS) Lymphatics: No axilla or inguinal lymphadenopathy - Studies Medications List Reviewed: Yes Assessment And Plan - Current Problems (Diagnosis) (1) Thalamic infarct, acute Current Visit: Yes Status: Acute Plan: BILATERAL THALAMIC INFARCTION. POSSIBLE FROM ABNORMAL VARIANT OF BLOOD VESSEL SUPPLYING THIS AREA. DR DANIEL DETAILED HOW INSTEAD OF TWO BLOOD VESSELS SHE HAS ONE AND THAT ONE OCCLUDED GIVING RISE TO STROKE. START DOBHOFF FEEDING. START ASPIRIN 81 MG DAILY FROM DOBHOFF SHE IS NOT ABLE TO SWALLOW BEING UNRESPONSIVE. SLEEP WAKE CYCLE , KIRSTIE ARE NOT FUNCTIONIGN WELL. HE MAY LET US DO DOBHOFF TUBE IF SHE DOES NOT WAKE UP. SHE DID NOT NEED DOBHOFF AFTERALL. WE GAVE HER ASPIRIN PER RECTAL. DAUGHTER WHO IS DOCTOR HAS A LOT OF QUESTIONS. I CALLED HER AND SHE IS ON AIRPLANE FOR VISIT HERE. IDEALLY WITH ANOMALY THAT SHOWS THE REASON OF INFARCT WE DON'T LOOK FOR HYPERCOAGULATION OR BUBBLE STUDY. SHE WANTS IT SO WE WILL HAVE IT DONE. (2) BP (high blood pressure) Current Visit: Yes Status: Acute Plan: THIS IS A REACTION TO HAVING STROKE. SHE NEVER HAD HTN BEFORE.
[2020-12-23] MEDS: ATORVASTATIN 10 MG TAB PO SCH (21:00)
[2020-12-24 05:49] LABS: Absolute Lymphocytes (CBC) 0.8 K/uL (0.7-4.9); Basophils % 0.4 % (0-1.3); Hematocrit 33.7 % (36.0-45.0); Lymphocytes % 8.4 % (15.3-44.8); MPV 9.8 fL (7.6-11.3)
[2020-12-24 05:57] LABS: BUN Blood Urea Nitrogen 15 mg/dL (7-18); Bicarbonate 26 mmol/L (21-32); Glucose Level 155 mg/dL (74-106); HDL Cholesterol 42 mg/dL (40-60); LDL Cholesterol, Calculated 57 (<130); Potassium 3.7 mmol/L (3.5-5.1); Sodium Level 141 mmol/L (136-145)
[2020-12-24 06:41] LABS: C-Reactive Protein 69.6 mg/L (<3.00)
[2020-12-24] MEDS: carvediloL 6.25 MG TAB PO SCH ×2 (08:11→21:00)
[2020-12-24] MEDS: ACETAMINOPHEN 325 MG TABLET PO PRN (08:11)
[2020-12-24] MEDS: GABAPENTIN 100 MG CAP PO SCH (08:11)
[2020-12-24] MEDS: ASPIRIN EC 81 MG TAB PO SCH (08:12)
[2020-12-24] MEDS: ENOXAPARIN 40 MG/0.4 ML SQ SCH (08:12)
--- NOTE | 2020-12-24 08:41 | ECHO ---
HEIGHT: 5 ft 4 in WEIGHT: 145 lb 0 oz DATE OF STUDY: 12/23/[address]: Jerome Art MD 2-DIMENSIONAL: YES M.MODE: YES DOPPLER: NO COLOR FLOW: NO TDS: YES PORTABLE: NO DEFINITY: NO BUBBLE STUDY: NO DIAGNOSIS: CHEST PAIN, SALINE CONTRAST STUDY CARDIAC HISTORY: CATHERIZATION: NO SURGERY: NO PROSTHETIC VALVE: NO PACEMAKER: NO MEASUREMENTS (cm) DIASTOLIC (NORMALS) SYSTOLIC (NORMALS) IVSd (0.6-1.2) LA Diam (1.9-4.0) LVEF 65-69% LVIDd (3.5-5.7) LVIDs (2.0-3.5) %FS % LVPWd (0.6-1.2) Ao Diam (2.0-3.7) 2 DIMENSIONAL ASSESSMENT: RIGHT ATRIUM: LEFT ATRIUM: RIGHT VENTRICLE: LEFT VENTRICLE: TRICUSPID VALVE: MITRAL VALVE: PULMONIC VALVE: AORTIC VALVE: PERICARDIAL EFFUSION: AORTIC ROOT: LEFT VENTRICULAR WALL MOTION: DOPPLER/COLOR FLOW: COMMENTS: TECNICALLY DIFFICULT STUDY. NORMAL LEFT VENTRICULAR SIZE AND FUNCTION. LEFT VENTRICULAR EJECTION FRACTION 65-69%. NO EFFUSION. NO EVIDENCE OF ATRIAL SEPTAL DEFECT OR PATENT FORAMEN OVALE BY BUBBLE STUDY. TECHNOLOGIST: Jorge LOPEZ
[2020-12-24] MEDS ORDERED: modafiniL 100 MG TAB PO SCH (09:00)
[2020-12-24] MEDS: ASPIRIN 600 MG/SUPP PR SCH (09:00)
--- NOTE | 2020-12-24 14:41 | RAD REPORT ---
EXAM DESCRIPTION: USExtrem Venous W Compress Bil12/24/2020 2:32 pm CLINICAL HISTORY: Leg swelling COMPARISON: 2016 FINDINGS: The common femoral, superficial femoral, popliteal and posterior tibial veins bilaterally are compressible and demonstrate augmentation. Doppler demonstrates good flow. IMPRESSION: No evidence of deep venous thrombosis involving either lower extremity.
--- NOTE | 2020-12-24 15:03 | RAD REPORT ---
EXAM DESCRIPTION: USCarotid Artery Bilateral12/24/2020 2:25 pm CLINICAL HISTORY: cva FINDINGS: The velocity of the right internal carotid artery equals 105 cm/sec. The right ICA/CCA rat io 0.7 The velocity of the left internal carotid artery equals 92 cm/sec. The left ICA/CCA ratio 0.6 Plaque is not visualized carotid arteries The vertebral arteries demonstrate antegrade flow IMPRESSION: Unremarkable exam NASCET criteria used. Mild 0-49% stenosis Moderate 50-69% stenosis Severe 70-99% stenosis
[2020-12-24] MEDS: NA CHLORIDE 0.9% 1,000 ML IV SCH (16:10)
--- NOTE | 2020-12-24 16:35 | P.PN ---
Subjective Date of Service: 12/24/20 Chief Complaint: THALAMIC INFARCTS Subjective: Improving SHE WOKE UP YESTERDAY FROM 11 AM TO 4 PM AND SINCE THEN SHE IS SLEEPING AGAIN. POSTPONED AGGIE TUBE SHE WOKE UP AND HAD SPEECH THERAPY EVAL. SHE IS AWAKE TODAY. SHE DOES NOT KNOW ABOUT YEAR UNTIL PROMPTED. SHE IS ABLE TO EAT. THIS MORNING SHE IS AWAKE FOR TWO HOURS ATE COOKIES AND BREAKFAST. SHE HAS NO PAIN. Review of Systems 10-point ROS is otherwise unremarkable General: Weakness Physical Examination - Vital Signs Temperature: 97.5 F Blood Pressure: 97/54 Pulse: 67 Respirations: 16 Pulse Ox (%): 97 - Physical Exam General: Mild distress, Other (AWAKE TODAY, BUT 20 HOURS A DAY SHE SLEEPS.) HEENT: Atraumatic, PERRLA, EOMI Neck: Supple, JVD not distended Respiratory: Clear to auscultation bilaterally, Normal air movement Cardiovascular: Regular rate/rhythm, Normal S1 S2 Gastrointestinal: Normal bowel sounds, No tenderness Musculoskeletal: No tenderness Integumentary: No rashes Neurological: Normal speech, Other (MEMORY IS COMING BACK. SHE IS ABLE TO TELL WHAT MONTH IS TODAY. ) Lymphatics: No axilla or inguinal lymphadenopathy - Studies Medications List Reviewed: Yes Assessment And Plan - Current Problems (Diagnosis) (1) Thalamic infarct, acute Current Visit: Yes Status: Acute Plan: BILATERAL THALAMIC INFARCTION. I HAD A LONG MEETING WITH HER AND THE DAUGHTER WHO IS AN CONTROL DIRECTOR TODAY. SHE HAD MANY QUESTIONS ABOUT WORK UP. I EXPLAINED THAT NEUROLOGIST AND MYSELF SUSPECT THAT THIS STROKE IS AN INFARCT AND NOT AN EMBOLISM. AT THE SAME TIME HYPERCOAGULATION WORK UP IS RECOMMENDED IN YOUNGER STROKE PATIENTS ABOUT 50 OR YOUNGER. THIS IS WHY WE DID NOT DO WORK UP UNTIL SHE ASKED FOR IT. SAME FOR PFO WORK UP WE THINK THIS IS AN INFARCT AND NOT EMBOLISM. SHE ASKED FOR MORE WORK UP AND THAT IS NEGATIVE SO FAR. BUBBLE STUDY, VENOUS DOPPLER ARE NEGATIVE. HYPERCOAGULATION STUDIES ARE PENDING. SHE WANTS MOTHER IN [facility] AND NOT AT THIS HOSPITAL. NOW THEY ARE READY FOR DOBHOFF TUBE INSERTION THAT WAS SCHEDULED A FEW DAYS AGO BUT THEY WANTED TO WAIT. I CALLED DR. ROSA AND HE AGREES TO DO IT ON SUNDAY. PROGNOSIS IS GUARDED. (2) BP (high blood pressure) Current Visit: Yes Status: Acute Plan: THIS IS A REACTION TO HAVING STROKE. SHE NEVER HAD HTN BEFORE. ] BP IS LOWER NOW. I WILL STOP CATAPRES PATCH.
--- NOTE | 2020-12-24 20:48 | PN ---
Subjective: Ms. Robins is sitting in bed, trying to eat dinner, very, very sleepy. Her is feeding the food to her. Her daughter is at the bedside. She does not report a complaint or any dis tress. Objective: Vital Signs: Blood pressure ranged 97 to 102/50 to mid 50s; pulse ranged in the 60s, karthik und 67; temperature 97.5; oxygen saturation 97% on room air, respiratory rate 15 to 18. Weight 145 p ounds, height 5 feet 4 inches. Neurologic: Ms. Robins is a very sleepy, but can be aroused by verbal and tactile stimulation. Her head is bent forward. Eyes mostly closed and for a moment when stimulated, she is awake enough to b ite and chew just a little bit of food at the time. When stimulated further, she moves both feet equ ally well and the arms equally well. Her said that earlier today she did not get up, but pre viously day before, she was able to get to the bathroom when more awake. However, most of the time, she is asleep and when the physical therapist in their note came to work with her, she was asleep and very difficult to arouse, and they were unable to work with her in terms of out of the bed. Laboratory Studies: Complete blood count with differential shows slightly low hemoglobin 11.5, tracie l white blood cell count. Coagulation, no new findings there, nothing abnormal. Chemistries show gl ucose ranged 139 to 155; chloride slightly elevated at 108, otherwise normal; calcium 8.2. Total cho lesterol is 114, LDL cholesterol 57, HDL cholesterol 42. Homocystine level pending. Vitamin B12 shirley vated to 1352. C-reactive protein very elevated to 69.6. Troponin less than 0.0. She has stroke an d the workup pending. Her carotid artery ultrasound showed an unremarkable study. There are no sign ificant abnormalities identified. Extremity Doppler study showed no clot in either legs. Echocardio gram showed left ventricular size and function, showed no abnormalities, 65% to 99% ejection fraction , no effusion, no evidence of atrial septal defect or patent foramen ovale by bubble study, and no ot her abnormalities identified. Assessment: Ms. 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 She does not have any evidence of a cardioembolic episode or thromboembolic episode, but possibly ischemic episode from the vessel itse lf related to her stroke risk factors, which include hypertension and dyslipidemia, which is now well controlled. This was all discussed with the patient's family. I did start modafinil earlier today, but not quite clear if the patient is more awake. I increased that to 100 mg around 8 a.m. and anot her 100 mg around 2 p.m. to see if that may be helpful. She is also on gabapentin. May consider if not required to minimize the need of anything that could be sedating to help the patient to be more a wake. She will likely benefit from a very aggressive program of physical therapy. It is not clear i f she may get approval from insurance, however, I think all attempts should be made whether it be a t ier or in our local rehab unit for aggressive physical therapy. This was discussed with the family a nd they were told to work with her throughout the day to move arms, legs, and stimulate her to keep h er awake to try to activate the area to return towards normal functioning. However, it is very tough for that to occur and this was discussed with the patient's family, and they are understanding. The patient again will have an attempt made for either transfer to [facility] or to our rehab unit or some ot er facility where aggressive rehab could be redone. CHACE Voice ID: [id number] Report ID: [id number]
[2020-12-24 20:59] LABS: RPR (Rapid Plasma Reagin) NON-REACT (NON-REACT)
[2020-12-24] MEDS: ATORVASTATIN 10 MG TAB PO SCH (21:00)
[2020-12-25] MEDS: NA CHLORIDE 0.9% 1,000 ML IV SCH (02:34)
[2020-12-25 07:41] LABS: Hematocrit 33.7 % (36.0-45.0); RBC Red Blood Cell Count 3.61 M/uL (3.86-4.86)
[2020-12-25 07:42] LABS: Absolute Lymphocytes (CBC) 0.9 K/uL (0.7-4.9); Basophils % 0.5 % (0-1.3); Lymphocytes % 12.7 % (15.3-44.8); MPV 9.3 fL (7.6-11.3)
[2020-12-25 07:54] LABS: BUN Blood Urea Nitrogen 13 mg/dL (7-18); Bicarbonate 27 mmol/L (21-32); Glucose Level 104 mg/dL (74-106); Potassium 3.7 mmol/L (3.5-5.1); Sodium Level 142 mmol/L (136-145)
--- NOTE | 2020-12-25 07:58 | PN ---
Date of Progress Note: 12/21/2020 Subjective: Ms. Robins was seen on 12/20/2020 because of syncope. She had an extensive cardiovascu lar and workup pending. She had MRI of brain that showed bilateral paramedian thalamic ac [place] nonhemorrhagic infarction. Thalami extending to the superior midbrain. She had an EEG that show ed mild abnormality consistent with mild slowing background with diffuse disturbance in the cerebral function. Echocardiogram was done, showed mild tricuspid regurgitation, normal left ventricular size and function, . Dr. Barrow and Dr. Jain following the patient. Certainly, a 2D echoca rdiogram with bubble study may be reasonable to rule out any PFO or ASD, I doubt very much that this is an embolic event. I will discuss the case further with Dr. Barrow. I will be available for questi ons if the need arises. JOSEE/JESSICA Voice ID: [id number] Report ID: [id number]
[2020-12-25] MEDS: ASPIRIN 600 MG/SUPP PR SCH (09:00)
[2020-12-25] MEDS: carvediloL 6.25 MG TAB PO SCH ×2 (09:47→21:30)
[2020-12-25] MEDS: ASPIRIN EC 81 MG TAB PO SCH (09:47)
[2020-12-25] MEDS: ENOXAPARIN 40 MG/0.4 ML SQ SCH (09:48)
[2020-12-25] MEDS: modafiniL 100 MG TAB PO SCH ×2 (09:48→13:02)
[2020-12-25] MEDS: GABAPENTIN 100 MG CAP PO SCH (09:48)
[2020-12-25] MEDS: FAMOTIDINE 20 MG/2 ML VIAL IV SCH (09:50)
--- NOTE | 2020-12-25 10:10 | CON ---
Date of Consultation: 12/20/2020 Reason For Consultation: Syncope. History Of Present Illness: Ms. Robins is a rather healthy woman without any past cardiac history. She has a history of gastroesophageal reflux disease and chronic back pain for which she takes gabap entin, estradiol, and tizanidine. She came in with syncope, unknown. Of time, the syncope was witne ssed by her and occurred at home while patient was sitting. A prior to the episode the patie nt has complained of some dizziness, but did not have any chest pain. She had denied any nausea, vom iting, diaphoresis, PND, orthopnea, pedal edema, or palpitation. There were no evidence of seizure d isorder reported by the patient and/or the family. She was admitted for further evaluation and treat ment. By the time I saw her, she already had a chest x-ray showing chronic interstitial disease with a possibility of a hiatal hernia. She had a brain MRI and MRA which were still pending when I saw h er. She will also going to have an EEG. They were still pending by the time I saw her. Neurologica l consultation was still pending. An abdominal x-ray confirming a Dobhoff placement was pending as osorio crabtree. Past Medical History: As stated above. Allergies: NONE. Review of Systems: Negative. Social History: Negative. Family History: Noncontributory. Medications: At home were listed earlier. Physical Examination: General: When I initially saw Ms. Robins her vital signs was stable, but she would not wake up for questions. She was not easily arousable. Vital Signs: Her blood pressure was 150/88. She was in sinus rhythm. Her temperature was 98.3. HEENT: Negative. Neck: Supple without any bruit, lymphadenopathy, JVD, or thyromegaly. Chest: Clear to auscultation and percussion. Cardiac: Revealed a regular rhythm and rate without any significant murmurs, gallops, or rubs. Abdomen: Benign. Extremities: Revealed no clubbing, cyanosis, or edema. Diagnostic Data: Most of her diagnostic data was stated earlier. From a laboratory evaluations reyes dpoint her labs were fairly unremarkable. Impression And Plan: Syncope, etiology unknown so far. Extensive workup is pending. I am concerned that she may have had a CVA. I doubt we are dealing with any cardiac issues at this point. She has a brain MRI with MRA pending. She has a head CT pending. She has a neck MRA pending. She has an E EG pending. An echocardiogram is pending. Neurological consultation is pending. We will see what a ll these showed before making any further decisions. Carotid Doppler has been ordered as well. I wi ll discuss the case further with Dr. Barrow. I agree with his present regimen. JOSEE/JESSICA Voice ID: [id number] Report ID: [id number]
--- NOTE | 2020-12-25 16:25 | P.PN ---
Subjective Date of Service: 12/25/20 Chief Complaint: THALAMIC INFARCTS Subjective: Improving SHE WOKE UP YESTERDAY FROM 11 AM TO 4 PM AND SINCE THEN SHE IS SLEEPING AGAIN. POSTPONED AGGIE TUBE SHE WOKE UP AND HAD SPEECH THERAPY EVAL. SHE IS AWAKE TODAY. SHE DOES NOT KNOW ABOUT YEAR UNTIL PROMPTED. SHE IS ABLE TO EAT. THIS MORNING SHE IS AWAKE FOR TWO HOURS ATE COOKIES AND BREAKFAST. SHE HAS NO PAIN. SHE HAS EXCESS SLEEPINESS FROM THE STROKE BUT SHE IS ABLE TO WAKE UP AND EAT WITH PROMPTING. SHE IS ORIENTED TO PEOPLE AND PLACE. Review of Systems is unable to be obtained Physical Examination - Vital Signs Temperature: 98.1 F Blood Pressure: 128/61 Pulse: 101 Respirations: 18 Pulse Ox (%): 97 - Physical Exam General: Oriented x2, Unresponsive (AT TIMES BUT DOES WAKE UP.) HEENT: Atraumatic, PERRLA, EOMI Neck: Supple, JVD not distended Respiratory: Clear to auscultation bilaterally, Normal air movement Cardiovascular: Regular rate/rhythm, Normal S1 S2 Gastrointestinal: Normal bowel sounds, No tenderness Musculoskeletal: No tenderness Integumentary: No rashes Neurological: Abnormal strength (GEN WEAK.) Lymphatics: No axilla or inguinal lymphadenopathy - Studies Medications List Reviewed: Yes Assessment And Plan - Current Problems (Diagnosis) (1) Thalamic infarct, acute Current Visit: Yes Status: Acute Plan: BILATERAL THALAMIC INFARCTION. I HAD A LONG MEETING WITH HER AND THE DAUGHTER WHO IS AN CHIEF ARSON DIVISION TODAY. SHE HAD MANY QUESTIONS ABOUT WORK UP. I EXPLAINED THAT NEUROLOGIST AND MYSELF SUSPECT THAT THIS STROKE IS AN INFARCT AND NOT AN EMBOLISM. AT THE SAME TIME HYPERCOAGULATION WORK UP IS RECOMMENDED IN YOUNGER STROKE PATIENTS ABOUT 50 OR YOUNGER. THIS IS WHY WE DID NOT DO WORK UP UNTIL SHE ASKED FOR IT. SAME FOR PFO WORK UP WE THINK THIS IS AN INFARCT AND NOT EMBOLISM. SHE ASKED FOR MORE WORK UP AND THAT IS NEGATIVE SO FAR. BUBBLE STUDY, VENOUS DOPPLER ARE NEGATIVE. HYPERCOAGULATION STUDIES ARE PENDING. SHE WANTS MOTHER IN [facility] AND NOT AT THIS HOSPITAL. NOW THEY ARE READY FOR DOBHOFF TUBE INSERTION THAT WAS SCHEDULED A FEW DAYS AGO BUT THEY WANTED TO WAIT. I CALLED DR. ROSA AND HE AGREES TO DO IT ON SUNDAY. PROGNOSIS IS GUARDED. DAUGHTER WHO IS DOCTOR WANTED MORE WORKUP THAT IS DONE. I BELIEVE AND DR. DANIEL ALSO BELIEVES THAT SHE HAS AN INFARCT IN A VERY SMALL BLOOD VESSEL AND NOT EMBOLISM. IF SHE HAD EMBLOLISM IT WILL ALSO GO TO MANY OTHER AREAS OF BRAIN BEFORE IT LODGES IN SMALL ANOMALOUS BLOOD VESSEL SUPPLYING THALAMUS. (2) BP (high blood pressure) Current Visit: Yes Status: Acute Plan: THIS IS A REACTION TO HAVING STROKE. SHE NEVER HAD HTN BEFORE. ] BP IS LOWER NOW. I WILL STOP CATAPRES PATCH.
[2020-12-25] MEDS: ATORVASTATIN 10 MG TAB PO SCH ×2 (21:00→21:30)
[2020-12-26 06:15] LABS: Absolute Lymphocytes (CBC) 1.3 K/uL (0.7-4.9); Basophils % 0.9 % (0-1.3); Hematocrit 31.8 % (36.0-45.0); Lymphocytes % 18.8 % (15.3-44.8); MPV 9.8 fL (7.6-11.3); RBC Red Blood Cell Count 3.42 M/uL (3.86-4.86)
[2020-12-26 06:48] LABS: Potassium 3.5 mmol/L (3.5-5.1)
[2020-12-26] MEDS: NA CHLORIDE 0.9% 1,000 ML IV SCH ×2 (08:10→22:59)
[2020-12-26] MEDS: modafiniL 100 MG TAB PO SCH ×2 (08:36→14:31)
[2020-12-26] MEDS: GABAPENTIN 100 MG CAP PO SCH (08:36)
[2020-12-26] MEDS: ENOXAPARIN 40 MG/0.4 ML SQ SCH (08:36)
[2020-12-26] MEDS: ASPIRIN EC 81 MG TAB PO SCH (08:36)
[2020-12-26] MEDS: carvediloL 6.25 MG TAB PO SCH ×2 (08:36→19:29)
[2020-12-26] MEDS: ASPIRIN 600 MG/SUPP PR SCH (09:00)
[2020-12-26] MEDS: FAMOTIDINE 20 MG/2 ML VIAL IV SCH (11:02)
--- NOTE | 2020-12-26 11:18 | P.PN ---
Subjective Date of Service: 12/26/20 Chief Complaint: THALAMIC INFARCTS Subjective: Improving SHE WOKE UP YESTERDAY FROM 11 AM TO 4 PM AND SINCE THEN SHE IS SLEEPING AGAIN. POSTPONED AGGIE TUBE SHE WOKE UP AND HAD SPEECH THERAPY EVAL. SHE IS AWAKE TODAY. SHE DOES NOT KNOW ABOUT YEAR UNTIL PROMPTED. SHE IS ABLE TO EAT. THIS MORNING SHE IS AWAKE FOR TWO HOURS ATE COOKIES AND BREAKFAST. SHE HAS NO PAIN. SHE HAS EXCESS SLEEPINESS FROM THE STROKE BUT SHE IS ABLE TO WAKE UP AND EAT WITH PROMPTING. SHE IS ORIENTED TO PEOPLE AND PLACE. AWAKE TODAY. ABLE TO EAT BF. Review of Systems 10-point ROS is otherwise unremarkable General: Weakness Neurological: As per HPI Physical Examination - Vital Signs Temperature: 97.4 F Blood Pressure: 138/74 Pulse: 88 Respirations: 17 Pulse Ox (%): 96 - Physical Exam General: Oriented x3, Other HEENT: Atraumatic, PERRLA, EOMI Neck: Supple, JVD not distended Respiratory: Clear to auscultation bilaterally, Normal air movement Cardiovascular: Regular rate/rhythm, Normal S1 S2 Gastrointestinal: Normal bowel sounds, No tenderness Musculoskeletal: No tenderness Integumentary: No rashes Neurological: Other (ORIENTATION IS STILL POOR TO TIME AND PLACE. SHE DOES RECOGNIZE PEOPLE.), Abnormal speech, Abnormal strength (GEN WEAK. ABLE TO MOVE ALL FOUR LIMBS. ) Lymphatics: No axilla or inguinal lymphadenopathy - Studies Medications List Reviewed: Yes Assessment And Plan - Current Problems (Diagnosis) (1) Thalamic infarct, acute Current Visit: Yes Status: Acute Plan: BILATERAL THALAMIC INFARCTION. I HAD A LONG MEETING WITH HER AND THE DAUGHTER WHO IS AN ORDER ENTRY TECHNICIAN TODAY. SHE HAD MANY QUESTIONS ABOUT WORK UP. I EXPLAINED THAT NEUROLOGIST AND MYSELF SUSPECT THAT THIS STROKE IS AN INFARCT AND NOT AN EMBOLISM. AT THE SAME TIME HYPERCOAGULATION WORK UP IS RECOMMENDED IN YOUNGER STROKE PATIENTS ABOUT 50 OR YOUNGER. THIS IS WHY WE DID NOT DO WORK UP UNTIL SHE ASKED FOR IT. SAME FOR PFO WORK UP WE THINK THIS IS AN INFARCT AND NOT EMBOLISM. SHE ASKED FOR MORE WORK UP AND THAT IS NEGATIVE SO FAR. BUBBLE STUDY, VENOUS DOPPLER ARE NEGATIVE. HYPERCOAGULATION STUDIES ARE PENDING. SHE WANTS MOTHER IN [facility] AND NOT AT THIS HOSPITAL. NOW THEY ARE READY FOR DOBHOFF TUBE INSERTION THAT WAS SCHEDULED A FEW DAYS AGO BUT THEY WANTED TO WAIT. I CALLED DR. ROSA AND HE AGREES TO DO IT ON SUNDAY. PROGNOSIS IS GUARDED. DAUGHTER WHO IS DOCTOR WANTED MORE WORKUP THAT IS DONE. I BELIEVE AND DR. DANIEL ALSO BELIEVES THAT SHE HAS AN INFARCT IN A VERY SMALL BLOOD VESSEL AND NOT EMBOLISM. IF SHE HAD EMBLOLISM IT WILL ALSO GO TO MANY OTHER AREAS OF BRAIN BEFORE IT LODGES IN SMALL ANOMALOUS BLOOD VESSEL SUPPLYING THALAMUS. SHE IS MUCH MORE AWAKE. TALKED TO DAUGHTER AT BEDSIDE TODAY. MODAFINIL HAS HELPED. SHE ATE BF TODAY AND DID PT WHEN SHE IS AWAKE. DOBHOFF HAS BEEN CANCELED AGAIN SHE IS ABLE TO WAKE UP AND EAT. (2) BP (high blood pressure) Current Visit: Yes Status: Acute Plan: THIS IS A REACTION TO HAVING STROKE. SHE NEVER HAD HTN BEFORE. ] BP IS LOWER NOW. I WILL STOP CATAPRES PATCH.
[2020-12-26] MEDS: ATORVASTATIN 10 MG TAB PO SCH (19:29)
[2020-12-27] MEDS: NA CHLORIDE 0.9% 1,000 ML IV SCH ×2 (04:10→23:41)
[2020-12-27 05:50] LABS: Absolute Lymphocytes (CBC) 1.3 K/uL (0.7-4.9); Basophils % 0.9 % (0-1.3); Hematocrit 35.2 % (36.0-45.0); Lymphocytes % 14.9 % (15.3-44.8); MPV 9.7 fL (7.6-11.3); RBC Red Blood Cell Count 3.83 M/uL (3.86-4.86)
[2020-12-27 06:04] LABS: BUN Blood Urea Nitrogen 9 mg/dL (7-18); Bicarbonate 28 mmol/L (21-32); Glucose Level 117 mg/dL (74-106); Potassium 3.6 mmol/L (3.5-5.1); Sodium Level 141 mmol/L (136-145)
[2020-12-27] MEDS: ASPIRIN 600 MG/SUPP PR SCH (09:00)
[2020-12-27] MEDS: ASPIRIN EC 81 MG TAB PO SCH (09:57)
[2020-12-27] MEDS: GABAPENTIN 100 MG CAP PO SCH (09:57)
[2020-12-27] MEDS: carvediloL 6.25 MG TAB PO SCH ×2 (09:58→20:08)
[2020-12-27] MEDS: ENOXAPARIN 40 MG/0.4 ML SQ SCH (09:59)
[2020-12-27] MEDS: modafiniL 100 MG TAB PO SCH ×2 (10:05→16:02)
[2020-12-27 10:44] LABS: Protein C Antigen 97 % (70-140)
[2020-12-27] MEDS: FAMOTIDINE 20 MG/2 ML VIAL IV SCH (16:03)
[2020-12-27] MEDS: ATORVASTATIN 10 MG TAB PO SCH (20:09)
--- NOTE | 2020-12-27 20:39 | P.PN ---
Subjective Date of Service: 12/27/20 Chief Complaint: THALAMIC INFARCTS Subjective: Improving SOMONOLENT TODAY. COULD NOT WAKE UP MUCH MORE THAN SLUGGISH REPONSE TO STIMULUS. Review of Systems is unable to be obtained Physical Examination - Vital Signs Temperature: 98.5 F Blood Pressure: 134/61 Pulse: 93 Respirations: 17 Pulse Ox (%): 95 - Physical Exam General: Mild distress HEENT: Atraumatic, PERRLA, EOMI Neck: Supple, JVD not distended Respiratory: Clear to auscultation bilaterally, Normal air movement Cardiovascular: Regular rate/rhythm, Normal S1 S2 Gastrointestinal: Normal bowel sounds, No tenderness Musculoskeletal: No tenderness Integumentary: No rashes Neurological: Other (SOMNOLENT, SPONTANEOUS MOVEMENTS ARE VISIBLE.) Lymphatics: No axilla or inguinal lymphadenopathy - Studies Medications List Reviewed: Yes Assessment And Plan - Current Problems (Diagnosis) (1) Thalamic infarct, acute Current Visit: Yes Status: Acute Plan: BILATERAL THALAMIC INFARCTION. I HAD A LONG MEETING WITH HER AND THE DAUGHTER WHO IS AN ADMINISTRATIVE SUPERVISOR TODAY. SHE HAD MANY QUESTIONS ABOUT WORK UP. I EXPLAINED THAT NEUROLOGIST AND MYSELF SUSPECT THAT THIS STROKE IS AN INFARCT AND NOT AN EMBOLISM. AT THE SAME TIME HYPERCOAGULATION WORK UP IS RECOMMENDED IN YOUNGER STROKE PATIENTS ABOUT 50 OR YOUNGER. THIS IS WHY WE DID NOT DO WORK UP UNTIL SHE ASKED FOR IT. SAME FOR PFO WORK UP WE THINK THIS IS AN INFARCT AND NOT EMBOLISM. SHE ASKED FOR MORE WORK UP AND THAT IS NEGATIVE SO FAR. BUBBLE STUDY, VENOUS DOPPLER ARE NEGATIVE. HYPERCOAGULATION STUDIES ARE PENDING. SHE WANTS MOTHER IN [facility] AND NOT AT THIS HOSPITAL. NOW THEY ARE READY FOR DOBHOFF TUBE INSERTION THAT WAS SCHEDULED A FEW DAYS AGO BUT THEY WANTED TO WAIT. I CALLED DR. ROSA AND HE AGREES TO DO IT ON SUNDAY. PROGNOSIS IS GUARDED. DAUGHTER WHO IS DOCTOR WANTED MORE WORKUP THAT IS DONE. I BELIEVE AND DR. DANIEL ALSO BELIEVES THAT SHE HAS AN INFARCT IN A VERY SMALL BLOOD VESSEL AND NOT EMBOLISM. IF SHE HAD EMBLOLISM IT WILL ALSO GO TO MANY OTHER AREAS OF BRAIN BEFORE IT LODGES IN SMALL ANOMALOUS BLOOD VESSEL SUPPLYING THALAMUS. SHE IS MUCH MORE AWAKE. TALKED TO DAUGHTER AT BEDSIDE TODAY. MODAFINIL HAS HELPED. SHE ATE BF TODAY AND DID PT WHEN SHE IS AWAKE. DOBHOFF HAS BEEN CANCELED AGAIN SHE IS ABLE TO WAKE UP AND EAT. WE SENT ORDER TO [facility] ON SUNDAY BUT THEY OPENED THE CASE TODAY. HYPERCOAGULATION ALMEIDA NEG SO FAR, PROTEIN C, S, PROTHROMBIN GENE, ANTICARDIOLIPIN ANTIBODY ALL GOOD. I SUSPEC THESE WILL BE ALL OKAY. (2) BP (high blood pressure) Current Visit: Yes Status: Acute Plan: THIS IS A REACTION TO HAVING STROKE. SHE NEVER HAD HTN BEFORE. ] BP IS LOWER NOW. I WILL STOP CATAPRES PATCH.
[2020-12-27 22:22] LABS: Albumin, (SPE) 3.4 g/dL (3.8-4.8); Alpha-1-Globulins 0.3 g/dL (0.2-0.3); Alpha-2-Globulins 0.7 g/dL (0.5-0.9); Gamma Globulins 0.8 g/dL (0.8-1.7); INTERPRETATION REPORT
[2020-12-28 06:18] LABS: Absolute Lymphocytes (CBC) 1.4 K/uL (0.7-4.9); Basophils % 0.8 % (0-1.3); Hematocrit 32.8 % (36.0-45.0); Lymphocytes % 17.1 % (15.3-44.8); MPV 9.7 fL (7.6-11.3); RBC Red Blood Cell Count 3.56 M/uL (3.86-4.86)
[2020-12-28 06:32] LABS: Potassium 3.8 mmol/L (3.5-5.1)
[2020-12-28] MEDS: GABAPENTIN 100 MG CAP PO SCH (08:01)
[2020-12-28] MEDS: ASPIRIN EC 81 MG TAB PO SCH (08:02)
[2020-12-28] MEDS: carvediloL 6.25 MG TAB PO SCH ×2 (08:02→19:43)
[2020-12-28] MEDS: FAMOTIDINE 20 MG/2 ML VIAL IV SCH (08:02)
[2020-12-28] MEDS: modafiniL 100 MG TAB PO SCH ×2 (08:02→16:27)
[2020-12-28] MEDS: ENOXAPARIN 40 MG/0.4 ML SQ SCH (08:03)
[2020-12-28] MEDS: ASPIRIN 600 MG/SUPP PR SCH (08:03)
[2020-12-28] MEDS: ATORVASTATIN 10 MG TAB PO SCH (19:42)
[2020-12-28] MEDS: ENSURE ENLIVE 237 ML CAN PO SCH (19:43)
[2020-12-28] MEDS: NA CHLORIDE 0.9% 1,000 ML IV SCH (20:10)
--- NOTE | 2020-12-29 01:38 | PN ---
Subjective: Ms. 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 This i s a small blood vessel disease, unfortunately has given her extensive symptoms, mainly excessive somn olence. She is able to wake up to respond, but goes back to sleep. She is able to eat some food, bu t not completely 100% yet. Family has decided not to go for Dobhoff feeding tube at this point, as s he is slowly waking up. She is in on modafinil 100 mg p.o. b.i.d. 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 We are waiting for [employer] approval for [facility] where family is requesting. They want her there luiza use that is a bigger facility with better technology and hopefully insurance company approves for it. So far, hypercoagulation studies done for this patient have been negative. Her anticardiolipin ant ibodies are negative. Anti MEDICAL STAFF SERVICES COORDINATOR antibody is negative. Prothrombin gene antibody is negative. Protei n C and protein S activity are normal. Prognosis remains overall guarded. Her wakefulness will depe nd mainly on time at this point. RVD/MODL Voice ID: [id number] Report ID: [id number]
[2020-12-29 06:11] LABS: Absolute Lymphocytes (CBC) 1.6 K/uL (0.7-4.9); Hematocrit 32.9 % (36.0-45.0); MPV 9.5 fL (7.6-11.3); RBC Red Blood Cell Count 3.58 M/uL (3.86-4.86)
[2020-12-29] MEDS: FAMOTIDINE 20 MG/2 ML VIAL IV SCH (08:30)
[2020-12-29] MEDS: ENOXAPARIN 40 MG/0.4 ML SQ SCH (08:31)
[2020-12-29] MEDS: GABAPENTIN 100 MG CAP PO SCH (08:31)
[2020-12-29] MEDS: carvediloL 6.25 MG TAB PO SCH ×2 (08:31→20:57)
[2020-12-29] MEDS: modafiniL 100 MG TAB PO SCH ×2 (08:31→14:35)
[2020-12-29] MEDS: ASPIRIN EC 81 MG TAB PO SCH (08:31)
[2020-12-29] MEDS: ASPIRIN 600 MG/SUPP PR SCH (08:38)
[2020-12-29] MEDS: ENSURE ENLIVE 237 ML CAN PO SCH ×2 (08:38→20:58)
[2020-12-29] MEDS: NA CHLORIDE 0.9% 1,000 ML IV SCH (14:35)
[2020-12-29] MEDS: ATORVASTATIN 10 MG TAB PO SCH (20:57)
--- NOTE | 2020-12-30 01:17 | PN ---
Subjective: I saw her walking today with a walker with significant assistance and is very unsteady a nd still somnolent. She had 2 people helping her to walk today to the bathroom. Physical Examination: Vital Signs: Blood pressure 158/73, temperature 98.1. HEENT: No JVD. No carotid bruits. Chest: Clear. Heart: Regular. Neurological: Increased somnolence from reticular activating system dysfunction from bilateral thala annalisa stroke, generalized weakness otherwise. Assessment And Planning: Stroke as described above. Continue OT and PT. Family is wanting to rehab . Process has been started for referral to rehab. They are asking for a COVID test and a chest x-ra y, so we have done that today. RVD/MODL Voice ID: [id number] Report ID: [id number]
[2020-12-30 06:46] LABS: Absolute Lymphocytes (CBC) 1.7 K/uL (0.7-4.9); Basophils % 1.2 % (0-1.3); Hematocrit 34.4 % (36.0-45.0); MPV 8.9 fL (7.6-11.3); RBC Red Blood Cell Count 3.75 M/uL (3.86-4.86)
[2020-12-30 06:57] LABS: Potassium 4.1 mmol/L (3.5-5.1)
[2020-12-30] MEDS: ASPIRIN EC 81 MG TAB PO SCH (08:32)
[2020-12-30] MEDS: GABAPENTIN 100 MG CAP PO SCH (08:32)
[2020-12-30] MEDS: modafiniL 100 MG TAB PO SCH ×2 (08:32→14:00)
[2020-12-30] MEDS: FAMOTIDINE 20 MG/2 ML VIAL IV SCH (08:32)
[2020-12-30] MEDS: carvediloL 6.25 MG TAB PO SCH ×2 (08:32→20:18)
[2020-12-30] MEDS: ENOXAPARIN 40 MG/0.4 ML SQ SCH (08:33)
[2020-12-30] MEDS: ENSURE ENLIVE 237 ML CAN PO SCH ×2 (08:37→20:19)
--- NOTE | 2020-12-30 08:42 | RAD REPORT ---
EXAM DESCRIPTION: RAD - Chest Single View - 12/29/2020 9:44 pm CLINICAL HISTORY: PRE REHAB Chest pain. COMPARISON: Chest Single View dated 12/20/2020; Chest Pa And Lat (2 Views) dated 01/18/2017; Chest Singl e View dated 07/09/2016 FINDINGS: Portable technique limits examination quality. The lungs are emphysematous but clear. The heart is normal in size. No displaced fractures.Hardware i s present in the thoracic spine. IMPRESSION: No acute intrathoracic process suspected.
[2020-12-30] MEDS: ASPIRIN 600 MG/SUPP PR SCH (09:00)
[2020-12-30] MEDS: NA CHLORIDE 0.9% 1,000 ML IV SCH (11:23)
[2020-12-30] MEDS: ATORVASTATIN 10 MG TAB PO SCH (20:18)
--- NOTE | 2020-12-30 22:27 | PN ---
Subjective: Ms. Robins was somnolent when I visited this morning. She was able to be aroused, but falls asleep easily. Otherwise acutely she has no complaints. Physical Examination: Vital Signs: Blood pressure 145/67, temperature 98.0, pulse 97, oxygen saturation 99%. HEENT: No JVD. No carotid bruits. Chest: Clear. Heart: Regular. Abdomen: No guarding, no rebound, no rigidity. Neurological: She is able to ambulate with assistant customer service manager on each side in a walker, very unsteady. Lab Examination: Hemoglobin 11, hematocrit 34, white count is normal. Investigations of her hypercoagulation syndrome is all negative. WENDY is 1:40 and it is borderline. Assessment And Planning: Bilateral thalamic stroke mainly from ischemia of a blood vessel anomaly, which is supplying both sides of thalamus. Hypercoagulation syndrome has been ruled out. Antinuclear antibody is borderline positive. This is most likely a false positive as we see in many patients with WENDY. She has no signs of lupus clinically, and according to criteria of having 4 out of 12 positive criteria, she is only 1 positive so far. I am checking antidsDNA and anti-smooth muscle antibody tomorrow. We are waiting for clear answer and her insurance company has not replied in favor of [facility] yet. LAURID/MODL Voice ID: [id number] Report ID: [id number] GILBERTO
[2020-12-31] MEDS: NA CHLORIDE 0.9% 1,000 ML IV SCH ×2 (05:30→08:10)
[2020-12-31] MEDS: ASPIRIN 600 MG/SUPP PR SCH (09:00)
[2020-12-31] MEDS: ENSURE ENLIVE 237 ML CAN PO SCH ×2 (09:00→20:09)
[2020-12-31] MEDS: ASPIRIN EC 81 MG TAB PO SCH (09:20)
[2020-12-31] MEDS: GABAPENTIN 100 MG CAP PO SCH (09:20)
[2020-12-31] MEDS: ENOXAPARIN 40 MG/0.4 ML SQ SCH (09:21)
[2020-12-31] MEDS: FAMOTIDINE 20 MG/2 ML VIAL IV SCH (09:21)
[2020-12-31] MEDS: carvediloL 6.25 MG TAB PO SCH ×2 (09:21→20:09)
[2020-12-31] MEDS: modafiniL 100 MG TAB PO SCH ×2 (09:21→15:21)
[2020-12-31] MEDS: cloNIDine HCL 0.1 MG TAB PO PRN (16:00)
[2020-12-31] MEDS: ATORVASTATIN 10 MG TAB PO SCH (20:08)
--- NOTE | 2020-12-31 20:43 | PN ---
Subjective: Ms. Robins is about the same, waiting for insurance company's approval for rehab transf er, which is where the family wants [facility] transfer. She is very somnolent, still very disabled from her bilateral thalamic stroke, not able to function on her own, able to wake up with a stimulus, but goes back to sleep significantly faster. Physical Examination: Vital Signs: Blood pressure anywhere from normal to 179 systolic. Chest: Clear. Heart: Regular. Abdomen: No guarding. No rebound. No rigidity. Neurological: As described above. Altered sensorium from stroke from reticular activating system. Weakness is generalized. Mentation is also poor. Cognitive performance is poor at this point. Assessment And Plan: Bilateral thalamic stroke. Waiting for [facility] transfer if approved by insurance company. The insurance company is taking a long time to approve or disapprove any referrals at this point. Family is aware of the situation. Continue OT and PT while she is here. Continue Plavix. C ontinue atorvastatin. Lab has been stable so far. RVD/MODL Voice ID: [id number] Report ID: [id number]
[2021-01-01] MEDS: NA CHLORIDE 0.9% 1,000 ML IV SCH ×3 (02:46→23:00)
[2021-01-01] MEDS: ENSURE ENLIVE 237 ML CAN PO SCH ×2 (09:00→20:41)
[2021-01-01] MEDS: ASPIRIN 600 MG/SUPP PR SCH (09:00)
[2021-01-01] MEDS: GABAPENTIN 100 MG CAP PO SCH (09:00)
--- NOTE | 2021-01-01 09:01 | P.PN ---
Subjective Date of Service: 01/01/21 Primary Care Provider: Dr. Barrow( I am covering for him today) Chief Complaint: THALAMIC INFARCTS Subjective: Other (increased somnolence but arouasable) Physical Examination - Vital Signs Temperature: 96.8 F Blood Pressure: 140/73 Pulse: 73 Respirations: 18 Pulse Ox (%): 96 - Studies Medications List Reviewed: Yes Assessment & Plan Discharge Plan: Other (Inpatient rehab vs SNF) Physician Review Additional Text: Physical exam: Patient with increased somnolence but arousable Heart: Regular rate rhythm Lungs: Clear to auscultation Abdomen: Soft nontender nondistended Impression: Syncope, somnolence secondary to ischemic CVA to the inferior thalami extending to the superior midbrain with 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 Barrow today. Will review medications and try to eliminate any sedating medications. Will discontinue gabapentin as this may cause sedation. Will also discontinue clonidine as well. Continue aspirin, carvedilol, and statin medication. Patient on DVT prophylaxis. Neurology has started modadinil. Will discuss with neurology for further recommendation. Continue physical therapy. Social work mentioned that patient was denied inpatient rehab. May need to pursue skilled placement. Attending physician will further address. Continue with other medications. Patient being evaluated for autoimmune. Will add thiamine and folic acid. Attending physician will assume care tomorrow. Hypertension: Continue medication. Overall stable. Will discontinue clonidine. This was use as needed. That this may cause some some sedation. Hyperlipidemia: Continue medication-Lipitor Time Spent Managing Pts Care (In Minutes): 55
[2021-01-01] MEDS: modafiniL 100 MG TAB PO SCH ×2 (09:51→13:52)
[2021-01-01] MEDS: ASPIRIN EC 81 MG TAB PO SCH (09:51)
[2021-01-01] MEDS: FAMOTIDINE 20 MG/2 ML VIAL IV SCH (09:51)
[2021-01-01] MEDS: carvediloL 6.25 MG TAB PO SCH ×2 (09:51→20:40)
[2021-01-01] MEDS: ENOXAPARIN 40 MG/0.4 ML SQ SCH (09:51)
[2021-01-01 10:27] LABS: Thyroid Stimulating Hormone 0.304 uIU/mL (0.360-3.740)
[2021-01-01 17:27] LABS: Prothrombin Gene Analysis Test REPORT
[2021-01-01] MEDS: ATORVASTATIN 10 MG TAB PO SCH (20:39)
[2021-01-02 06:36] LABS: Absolute Lymphocytes (CBC) 1.8 K/uL (0.7-4.9); Basophils % 1.1 % (0-1.3); Hematocrit 38.2 % (36.0-45.0); Lymphocytes % 28.7 % (15.3-44.8); MPV 9.4 fL (7.6-11.3); RBC Red Blood Cell Count 4.16 M/uL (3.86-4.86)
[2021-01-02 06:41] LABS: Magnesium 2.4 mg/dL (1.8-2.4); Potassium 3.9 mmol/L (3.5-5.1)
--- NOTE | 2021-01-02 08:01 | P.PN ---
Subjective Date of Service: 01/02/21 Primary Care Provider: Dr. Barrow( I am covering for him today) Chief Complaint: THALAMIC INFARCTS Subjective: Improving, Doing well Physical Examination - Vital Signs Temperature: 97.9 F Blood Pressure: 161/80 Pulse: 69 Respirations: 16 Pulse Ox (%): 94 - Studies Medications List Reviewed: Yes Assessment & Plan Discharge Plan: Other (SNF) Plan to discharge in: 24 Hours Physician Review Additional Text: Physical exam: Patient doing well this time. No increased somnolence noted. Patient ambulated and was to her chair yesterday. 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 Barrow today. Patient doing well this time. Patient was doing well yesterday. Patient continues to participate with physical therapy. Patient was able to sit appropriately with daughter at bedside yesterday. Deangelo chacon reviewed yesterday. Sedating medications eliminated. This included gabapentin and clonidine. Continue aspirin, carvedilol, and statin medication. Patient on DVT prophylaxis. Neurology has started modadinil. Patient doing well with medication. Patient to continue with physical therapy. Awaiting acceptance to skilled placement facility. Patient being evaluated for autoimmune. PCP/Attending physician will assume care. I will go over the plan of care with him. Hypertension: Continue medication. Overall stable. Occasions adjusted yesterday Hyperlipidemia: Continue medication-Lipitor Time Spent Managing Pts Care (In Minutes): 55
[2021-01-02] MEDS: ASPIRIN 600 MG/SUPP PR SCH (09:00)
[2021-01-02] MEDS: ENSURE ENLIVE 237 ML CAN PO SCH ×2 (09:00→21:01)
[2021-01-02] MEDS: carvediloL 6.25 MG TAB PO SCH ×2 (10:08→21:00)
[2021-01-02] MEDS: ASPIRIN EC 81 MG TAB PO SCH (10:08)
[2021-01-02] MEDS: FAMOTIDINE 20 MG/2 ML VIAL IV SCH (10:09)
[2021-01-02] MEDS: modafiniL 100 MG TAB PO SCH ×2 (10:09→14:59)
[2021-01-02] MEDS: ENOXAPARIN 40 MG/0.4 ML SQ SCH (10:10)
[2021-01-02] MEDS: NA CHLORIDE 0.9% 1,000 ML IV SCH (19:12)
[2021-01-02] MEDS: ATORVASTATIN 10 MG TAB PO SCH (21:00)
[2021-01-03] MEDS: ASPIRIN 600 MG/SUPP PR SCH (09:00)
[2021-01-03] MEDS: ENSURE ENLIVE 237 ML CAN PO SCH ×2 (09:00→21:12)
[2021-01-03] MEDS: ASPIRIN EC 81 MG TAB PO SCH (09:38)
[2021-01-03] MEDS: modafiniL 100 MG TAB PO SCH ×2 (09:38→13:25)
[2021-01-03] MEDS: carvediloL 6.25 MG TAB PO SCH ×2 (09:38→21:12)
[2021-01-03] MEDS: ENOXAPARIN 40 MG/0.4 ML SQ SCH (09:39)
[2021-01-03] MEDS: FAMOTIDINE 20 MG/2 ML VIAL IV SCH (09:39)
[2021-01-03] MEDS: NA CHLORIDE 0.9% 1,000 ML IV SCH (13:25)
[2021-01-03] MEDS: ATORVASTATIN 10 MG TAB PO SCH (21:11)
--- NOTE | 2021-01-04 01:17 | PN ---
Mrs. Robins is waiting for rehab placement to be heard this afternoon that she has been accepted here or at least her appeal to fight the rejection has been approved according to Sheila, the nurse in-charge for discharge planning. I discussed with the patient's daughter and this morning the appeal letter was sent to [employer] this morning. [employer] did not want me to talk to any doctor in their company for [id number] process, so we sent a letter out and fortunately the latter has been effective to get her to rehab facility as she is able to stay awake for about 6 hours in a row and then there are times of somnolence, but with her history of severe scoliosis, bilateral thalamic stroke, and multiple surgeries in the spine before, she deserved physical therapy in a rehab facility with multiple other modalities to help her recover. Continue her current medications, aspirin and statin, in addition to other supportive medications. RVD/MODL Voice ID: [id number] Report ID: [id number] GILBERTO
[2021-01-04] MEDS: ENSURE ENLIVE 237 ML CAN PO SCH (09:00)
[2021-01-04] MEDS: ASPIRIN 600 MG/SUPP PR SCH (09:00)
[2021-01-04 10:58] VITALS: O2SAT 95
[2021-01-04] MEDS: ACETAMINOPHEN 325 MG TABLET PO PRN (11:03)
[2021-01-04] MEDS: FAMOTIDINE 20 MG/2 ML VIAL IV SCH (11:03)
[2021-01-04] MEDS: ASPIRIN EC 81 MG TAB PO SCH (11:03)
[2021-01-04] MEDS: modafiniL 100 MG TAB PO SCH ×2 (11:03→14:57)
[2021-01-04] MEDS: NA CHLORIDE 0.9% 1,000 ML IV SCH (11:03)
[2021-01-04] MEDS: carvediloL 6.25 MG TAB PO SCH (11:04)
[2021-01-04] MEDS: ENOXAPARIN 40 MG/0.4 ML SQ SCH (11:04)
[2021-01-04 14:08] VITALS: BP 204/90; TEMP 97.2
--- NOTE | 2021-01-04 21:20 | P.DS ---
Admission Date: 12/20/20 Discharge Date: 01/04/21 Disposition: TRANSFR TO OTHER-PSY/CD/REHAB Discharge Condition: FAIR Reason for Admission: THALAMIC INFARCTS - Problems (1) Thalamic infarct, acute Status: Acute (2) BP (high blood pressure) Status: Acute Brief History of Present Illness: MRS. ESCOBEDO HAS HISTORY OF SCOLIOSIS WITH MULTIPLE SURGERIES COMES WITH SUDDEN SOMNOLENCE. HER CT SCAN WAS NEGATIVE BUT MRI DONE TODAY SHOW BILATERAL THALAMIC INFARCTIONS. SHE NEVER HAD HTN, SHE IS NOT A SMOKER OR A DIABETIC. 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 THI STROKE AFFECTED HER KIRSTIE AND SHE STAYED SOMNOLENT MOST DAY. THIS GRADUALLY IMRPOVED AND SHE WAS ABLE TO STAY AWAKE FOR 6 HOURS IN A ROW. AFTER A HASSLE FROM INSURANCE COMPANY AND WASTAGE OF MANY DAYS OF HER CARE AND APPEAL TO [facility] WITH HELP OF DAUGHTER WHO IS A DOCTOR HELPED INSURANCE APPROVE FOR [facility]. SHE WAS TRANSFERRED TO [facility] TODAY. HER HYPERCOAGUALATION STUDIES WERE NEGATIVE AND BUBBLE STUDY WAS NEGATIVE. Vital Signs/Physical Exam: Temp Pulse Resp BP Pulse Ox 97.2 F 87 16 204/90 H 100 01/04/21 12:00 01/04/21 12:00 01/04/21 12:00 01/04/21 12:00 01/04/21 12:00 Laboratory Data at Discharge: WBC 6.30 K/uL (4.3-10.9) 01/02/21 05:53 Hgb 12.5 g/dL (12.0-15.0) 01/02/21 05:53 Hct 38.2 % (36.0-45.0) 01/02/21 05:53 Plt Count 312 K/uL (152-406) 01/02/21 05:53 PT 12.5 SECONDS (9.5-12.5) 12/19/20 23:45 INR 1.09 12/19/20 23:45 Sodium 143 mmol/L (136-145) 01/02/21 05:53 Potassium 3.9 mmol/L (3.5-5.1) 01/02/21 05:53 BUN 15 mg/dL (7-18) 01/02/21 05:53 Creatinine 0.86 mg/dL (0.55-1.3) 01/02/21 05:53 Glucose 97 mg/dL (74-106) 01/02/21 05:53 Magnesium 2.4 mg/dL (1.8-2.4) 01/02/21 05:53 Total Bilirubin 0.2 mg/dL (0.2-1.0) 12/19/20 23:45 AST 15 U/L (15-37) 12/19/20 23:45 ALT 24 U/L (12-78) 12/19/20 23:45 Alkaline Phosphatase 89 U/L (45-117) 12/19/20 23:45 Troponin I < 0.02 ng/mL (0.0-0.045) 12/20/20 06:20 Triglycerides 76 mg/dL (<150) 12/24/20 05:00 Cholesterol 114 mg/dL (<200) 12/24/20 05:00 HDL Cholesterol 42 mg/dL (40-60) 12/24/20 05:00 Cholesterol/HDL Ratio 2.71 12/24/20 05:00 Home Medications: Ascorbate Calcium [Vitamin C] 500 mg PO DAILY 12/20/20 Multivitamin 1 each PO DAILY 12/20/20 Acetaminophen [Tylenol Extra Strength] 1 tab PO BID 12/21/20 Cholecalciferol (Vitamin D3) [Vitamin D3] 1 tab PO DAILY 12/21/20 Gabapentin 2 tab PO DAILY 12/21/20 Polymyxin B Sulf/Trimethoprim [Polymyxin B-Tmp Eye Drops] 1 drop LEFT EYE QID 12/21/20 Tizanidine HCl 1 tab PO BID 12/21/20 Atorvastatin Calcium [Lipitor*] 10 mg PO BEDTIME tab 12/30/20 Enoxaparin Sodium [Lovenox 40 MG INJ*] 40 mg SQ DAILY syr 12/30/20 Ensure Enlive 237 ml PO BID can 12/30/20 carvediloL [Coreg*] 6.25 mg PO BID tab 12/30/20 cloNIDine HCL [Catapres*] 0.1 mg PO Q2H PRN tab 12/30/20 modafiniL [Provigil*] 100 mg PO 0800,1400 tab 12/30/20
== END 2021-01-04 16:45 | DRG 66 ==
LOC: ER 22:18 → ERHOLD 12-20 01:34 → 2ND 12-20 04:05 → OBSVTOIN 12-20 18:47 → 2ND 12-25 04:44
PROVIDERS: ADMIT Internal Medicine; ATTEND Internal Medicine
DX: I63.9 Cerebral infarction, unspecified (principal); K21.9 Gastro-esophageal reflux disease without esophagitis; G89.29 Other chronic pain; M54.9 Dorsalgia, unspecified; E78.5 Hyperlipidemia, unspecified; I07.1 Rheumatic tricuspid insufficiency; I10 Essential (primary) hypertension; Z79.899 Other long term (current) drug therapy; Z20.822 Contact with and (suspected) exposure to COVID-19
CPT/HCPCS: 36415; 70450; 70544; 70549; 70553; 71045; 74018; 80048; 80061; 80076; 80307; 81003; 81240; 81241; 82140; 82607; 82947; 83036; 83090; 83735; 83880; 84165; 84439; 84443; 84484; 85025; 85300; 85302; 85305; 85306; 85610; 86021; 86038; 86140; 86147; 86225; 86255; 86592; 92610; 93005; 93306; 93307; 93880; 93970; 95819; 97110; 97112; 97116; 97161; 97530; 99285; A9577; G0378; J1650; J7030; U0003